=== PATIENT | female | born 1950 | race Caucasian/White ===

== ENCOUNTER 2019-08-04 11:19 | Emergency (ER) | payer MEDICARE ==
--- NOTE | 2019-08-04 11:24 | ERPHSYRPT ---
- History of Present Illness Time Seen by Provider: 08/04/19 11:23 Source: patient, EMS Exam Limitations: no limitations Physician History: This is a 68-year-old white female who has a history of Lambert-Eaton syndrome and was discharged from [facility] from which she was recovering from pneumonia and presents today with supraventricular tachycardia with a heart rate in the 230 range in route to this hospital emergency department. Patient was given adenosine 6 mg intravenously which converted her SVT to sinus tachycardia in the 120s. Patient's blood pressure was in the 90s at the heart rate of 230. She arrived with a systolic blood pressure 102. Patient states that she has had shortness of breath and is been weak since her discharge from the hospital approximately 2 weeks ago. However, this morning her symptoms were worse and she had associated fluttering of her heart. Was discharged to home with nebulizer treatments, prednisone and Levaquin antibiotic. Patient has minimal abdominal pain and minimal chest pain. Patient's medication specialist is Dr. Sierra Timing/Duration: week(s) (2 weeks), worse (Is worse in the last 2 days.) Activities at Onset: activity Chest Pain Radiation: no radiation Severity of Pain-Max: mild Severity of Pain-Current: mild Modifying Factors: Improves With: coughing, exertion Nitro Today/Relief: no nitro taken today Aspirin Treatment Today: no aspirin today Associated Symptoms: shortness of breath, cough, weakness, other (Racing heart) Prior Chest Pain/Cardiac Workup: no prior chest pain Allergies/Adverse Reactions: No Known Drug Allergies Allergy (Verified 08/04/19 11:45) Home Medications: Furosemide 20 mg [Lasix 20 mg] 20 mg PO DAILY 08/04/19 [History] Guaifenesin 600 mg ER [Mucinex 600MG ER Tabs] 600 mg PO BID 08/04/19 [ History] Ipratropium/Albuterol Sulfate [Iprat-Albut 0.5-3(2.5) mg/3 ml] 3 ml IH UD PRN [History] Levothyroxine Sodium 100 Mcg [Synthroid 100 Mcg] 100 mcg PO DAILY 08/04/19 [History] Lisinopril 10 mg [Zestril 10 MG] 10 mg PO DAILY 08/04/19 [History] PANTOPRAZOLE 40 mg Tablet [Protonix 40MG Tablet] 40 mg PO QAM 08/04/19 [ History] Potassium Chloride 10 Meq Tab* [Klor Con 10 MEQ] 10 meq PO BID 08/04/19 [ History] Prednisone 10 mg [Deltasone 10 mg] 10 mg PO DAILY 08/04/19 [History] Simvastatin 80 mg PO HS 08/04/19 [History] Sitagliptin Phos/Metformin HCl [Janumet 50-1,000 mg Tablet] 2 each PO HS [History] Topiramate 100 mg PO BID 08/04/19 [History] - Review of Systems Constitutional: Weakness Eyes: No Symptoms Ears, Nose, & Throat: No Symptoms Respiratory: Cough, Dyspnea Cardiac: Palpitations Abdominal/Gastrointestinal: No Symptoms Genitourinary Symptoms: No Symptoms Musculoskeletal: No Symptoms Skin: No Symptoms Neurological: No Symptoms Psychological: No Symptoms Endocrine: No Symptoms Hematologic/Lymphatic: No Symptoms Immunological/Allergic: No Symptoms All Other Systems: Reviewed and Negative - Past Medical History Pertinent Past Medical History: Yes Neurological History: No Pertinent History ENT History: No Pertinent History Cardiac History: No Pertinent History Respiratory History: Pneumonia Endocrine Medical History: No Pertinent History Musculoskeletal History: No Pertinent History GI Medical History: No Pertinent History History: No Pertinent History Psycho-Social History: No Pertinent History Female Reproductive Disorders: No Pertinent History - Past Surgical History Past Surgical History: Yes Neuro Surgical History: No Pertinent History Cardiac: No Pertinent History Respiratory: No Pertinent History Gastrointestinal: No Pertinent History Genitourinary: No Pertinent History Musculoskeletal: No Pertinent History Female Surgical History: No Pertinent History - Social History Smoking Status: Never smoker Significant Family History: no pertinent family hx - Nursing Vital Signs Nursing Vital Signs: Initial Vital Signs Temperature 99.5 F 08/04/19 11:21 Pulse Rate 136 H 08/04/19 11:21 Respiratory Rate 32 H 08/04/19 11:21 Blood Pressure 102/55 08/04/19 11:21 O2 Sat by Pulse Oximetry 100 08/04/19 11:21 Pain Scale Pain Intensity 0 - Physical Exam General Appearance: moderate distress, alert, anxiety Eye Exam: PERRL/EOMI, eyes nml inspection Ears, Nose, Throat Exam: dry mucous membranes Neck Exam: normal inspection, non-tender, supple, full range of motion Respiratory Exam: chest tenderness (Mild), respiratory distress (Mild mild), airway intact, accessory muscle use Cardiovascular Exam: tachycardia Gastrointestinal/Abdomen Exam: soft, normal bowel sounds, No tenderness Pelvic Exam: not done Rectal Exam: not done Back Exam: normal inspection, normal range of motion, No CVA tenderness, No vertebral tenderness Extremity Exam: normal inspection, normal range of motion, pelvis stable Neurologic Exam: alert, oriented x 3, cooperative, bench mechanic II-XII nml as tested Skin Exam: normal color, warm, dry Lymphatic Exam: No adenopathy SpO2 Interpretation: normal O2 Delivery: Room Air - Course Nursing assessment & vital signs reviewed: Yes EKG Interpreted by Me: RATE (125), Sinus Tach, NORMAL AXIS, NORMAL INTERVALS, NORMAL QRS, Other (No comparison EKG) Ordered Tests: Active Orders 24 hr Category Date Time Status Crimp Setter STAT Care 08/04/19 11:34 Active EKG-ER Only STAT Care 08/04/19 11:32 Active IV Insertion STAT Care 08/04/19 11:32 Active Pulse Oximetry (ED) STAT Care 08/04/19 11:32 Active CHEST 1 VIEW (PORTABLE) Stat Exams 08/04/19 11:34 Completed CHEST WITH CONTRAST [CT] Stat Exams 08/04/19 16:17 Completed BMP Stat Lab 08/04/19 15:00 Completed CBC W DIFF Stat Lab 08/04/19 11:44 Completed CMP Stat Lab 08/04/19 11:44 Completed CULTURE,URINE Stat Lab 08/04/19 15:45 Received D-DIMER QUANTITATIVE Stat Lab 08/04/19 11:44 Completed Lactic Acid Stat Lab 08/04/19 11:47 Completed Lactic Acid Stat Lab 08/04/19 13:52 Completed Manual Differential NC Stat Lab 08/04/19 11:44 Completed NT PRO BNP Stat Lab 08/04/19 11:44 Completed T4 (Thyroxine) Stat Lab 08/04/19 11:44 Completed TROPONIN Q3H Lab 08/04/19 11:44 Completed TROPONIN Q3H Lab 08/04/19 14:30 Completed TROPONIN Q3H Lab 08/04/19 17:25 Completed TROPONIN Q3H Lab 08/04/19 20:45 Ordered TROPONIN Q3H Lab 08/04/19 23:45 Ordered TSH, 3RD Generation Stat Lab 08/04/19 11:44 Completed UA W/RFX UR CULTURE Stat Lab 08/04/19 15:45 Completed Medication Summary Generic Name Dose Route Start Last Admin Trade Name Freq PRN Reason Stop Dose Admin Sodium Chloride 1,000 mls @ 250 mls/hr 08/04/19 16:15 08/04/19 16:10 Sodium Chloride 0.9% 1000 Ml IV 09/03/19 16:14 250 mls/hr .Q4H GERTRUDE Administration Norepinephrine 4,000 mcg/ 504 mls @ 37.8 mls/hr 08/04/19 16:27 08/04/19 18:03 Dextrose IV 09/03/19 16:26 4 mcg/min .[id number] PRN 30.24 mls/hr SEVERE HYPOTENSION Titration Protocol 5 MCG/MIN Discontinued Medications Generic Name Dose Route Start Last Admin Trade Name Freq PRN Reason Stop Dose Admin Hydrocodone Bitart/Acetaminophen 10 ml 08/04/19 13:37 08/04/19 14:12 Hydrocodone-Acetamin 2.5-108/5 Ml Solution PO 08/04/19 13:38 10 ml STAT STA Administration Hydrocodone Bitart/Acetaminophen Confirm 08/04/19 14:02 Hydrocodone-Acetamin 2.5-108/5 Ml Solution Administered 08/04/19 14:03 Dose 10 ml .ROUTE .STK-MED ONE Hydrocodone Bitart/Acetaminophen 10 ml 08/04/19 17:55 08/04/19 18:10 Hydrocodone-Acetamin 2.5-108/5 Ml Solution PO 08/04/19 17:56 10 ml STAT STA Administration Hydrocodone Bitart/Acetaminophen Confirm 08/04/19 18:09 Hydrocodone-Acetamin 2.5-108/5 Ml Solution Administered 08/04/19 18:10 Dose 10 ml .ROUTE .STK-MED ONE Sodium Chloride 1,000 mls @ 999 mls/hr 08/04/19 13:18 08/04/19 14:42 Sodium Chloride 0.9% 1000 Ml IV 08/04/19 14:18 Infused .Q1H1M STA Infusion Meropenem 1 g/ Sodium Chloride 100 mls @ 200 mls/hr 08/04/19 13:38 08/04/19 14:10 IV 08/04/19 14:07 200 mls/hr STAT ONE Administration Sodium Chloride Confirm 08/04/19 13:37 Sodium Chloride 0.9% 1000 Ml Administered 08/04/19 13:38 Dose 1,000 mls @ ud .ROUTE .STK-MED ONE Sodium Chloride Confirm 08/04/19 14:02 Sodium Chloride 0.9% 100 Ml Ivpb Administered 08/04/19 14:03 Dose 100 mls @ ud IV .STK-MED ONE Sodium Chloride Confirm 08/04/19 16:06 Sodium Chloride 0.9% 1000 Ml Administered 08/04/19 16:07 Dose 1,000 mls @ ud .ROUTE .STK-MED ONE Meropenem Confirm 08/04/19 14:02 Merrem 1 Gm Administered 08/04/19 14:03 Dose 1 g IV .STK-MED ONE Metoprolol Tartrate 2.5 mg 08/04/19 13:37 08/04/19 15:15 Lopressor 5 Mg/5 Ml Injection IV 08/04/19 13:38 Not Given STAT ONE Metoprolol Tartrate Confirm 08/04/19 14:01 Lopressor 5 Mg/5 Ml Injection Administered 08/04/19 14:02 Dose 5 mg IV .STK-MED ONE Lab/Rad Data: Laboratory Result Diagrams 08/04/19 11:44 08/04/19 15:00 Laboratory Results 08/04/19 08/04/19 08/04/19 Range/Units 17:25 15:45 15:00 WBC (4.0-10.5) K/mm3 RBC (4.1-5.4) M/mm3 Hgb (12.0-16.0) gm/dl Hct (35-47) % MCV (78-100) fl MCH (26-32) pg MCHC (32-36) g/dl RDW (11.5-14.0) % Plt Count (150-450) K/mm3 MPV (7.5-11.0) fl Absolute Granulocytes (1.4-6.9) Segmented Neutrophils (36.0-66.0) % Band Neutrophils (0.0-2.0) % Lymphocytes (Manual) (24-44) % Monocytes (Manual) (0.0-12.0) % Eosinophils (Manual) (0.00-3.0) % Metamyelocytes % Toxic Granulation Platelet Estimate (NORMAL) RBC Morphology D-Dimer (215-500) ng/mL Sodium 132 L (137-145) mmol/L Potassium 3.5 (3.5-5.1) mmol/L Chloride 105 (98-107) mmol/L Carbon Dioxide 20 L (22-30) mmol/L Anion Gap 10.8 (5-15) MEQ/L BUN 14 (7-17) mg/dL Creatinine 1.01 (0.52-1.04) mg/dL Estimated GFR 58.3 ML/MIN Glucose 98 (74-106) mg/dL Lactic Acid (0.4-2.0) Calcium 7.2 L D (8.4-10.2) mg/dL Total Bilirubin (0.2-1.3) mg/dL AST (14-36) U/L ALT (0-35) U/L Alkaline Phosphatase (38-126) U/L Troponin I 0.037 H* (0.000-0.034) ng/mL NT-Pro-B Natriuret Pep (0-900) pg/mL Serum Total Protein (6.3-8.2) g/dL Albumin (3.5-5.0) g/dL Thyroxine (T4) (5.53-10.96) ug/dL TSH 3rd Generation (0.47-4.68) mIU/L Urine Color YELLOW (YELLOW) Urine Appearance SLIGHTLY CLOUDY (CLEAR) Urine pH 6.0 (5-6) Ur Specific [place] 1.012 (1.005-1.025) Urine Protein 30 (Negative) Urine Ketones TRACE (NEGATIVE) Urine Blood MODERATE (0-5) Hilario/ul Urine Nitrite NEGATIVE (NEGATIVE) Urine Bilirubin NEGATIVE (NEGATIVE) Urine Urobilinogen NEGATIVE (0-1) mg/dL Ur Leukocyte Esterase TRACE (NEGATIVE) Urine WBC (Auto) 11-15 (0-5) /HPF Urine RBC (Auto) 3-5 (0-2) /HPF U Epithel Cells (Auto) RARE (FEW) /HPF Urine Bacteria (Auto) FEW (NEGATIVE) /HPF Calcium Oxalate Crystal 3-5 (NEGATIVE) /HPF Amorphous Crystals FEW (NEGATIVE) /HPF Granular Casts (Auto) 10-25 (NEGATIVE) /LPF Urine Culture Reflexed YES (NO) Urine Glucose 50 (NEGATIVE) mg/dL Influenza Type A Ag (NEGATIVE) Influenza Type B Ag (NEGATIVE) RSV (PCR) (Negative) 08/04/19 08/04/19 08/04/19 Range/Units 14:30 13:52 12:35 WBC (4.0-10.5) K/mm3 RBC (4.1-5.4) M/mm3 Hgb (12.0-16.0) gm/dl Hct (35-47) % MCV (78-100) fl MCH (26-32) pg MCHC (32-36) g/dl RDW (11.5-14.0) % Plt Count (150-450) K/mm3 MPV (7.5-11.0) fl Absolute Granulocytes (1.4-6.9) Segmented Neutrophils (36.0-66.0) % Band Neutrophils (0.0-2.0) % Lymphocytes (Manual) (24-44) % Monocytes (Manual) (0.0-12.0) % Eosinophils (Manual) (0.00-3.0) % Metamyelocytes % Toxic Granulation Platelet Estimate (NORMAL) RBC Morphology D-Dimer (215-500) ng/mL Sodium (137-145) mmol/L Potassium (3.5-5.1) mmol/L Chloride (98-107) mmol/L Carbon Dioxide (22-30) mmol/L Anion Gap (5-15) MEQ/L BUN (7-17) mg/dL Creatinine (0.52-1.04) mg/dL Estimated GFR ML/MIN Glucose (74-106) mg/dL Lactic Acid 0.9 (0.4-2.0) Calcium (8.4-10.2) mg/dL Total Bilirubin (0.2-1.3) mg/dL AST (14-36) U/L ALT (0-35) U/L Alkaline Phosphatase (38-126) U/L Troponin I 0.027 (0.000-0.034) ng/mL NT-Pro-B Natriuret Pep (0-900) pg/mL Serum Total Protein (6.3-8.2) g/dL Albumin (3.5-5.0) g/dL Thyroxine (T4) (5.53-10.96) ug/dL TSH 3rd Generation (0.47-4.68) mIU/L Urine Color (YELLOW) Urine Appearance (CLEAR) Urine pH (5-6) Ur Specific [place] (1.005-1.025) Urine Protein (Negative) Urine Ketones (NEGATIVE) Urine Blood (0-5) Hilario/ul Urine Nitrite (NEGATIVE) Urine Bilirubin (NEGATIVE) Urine Urobilinogen (0-1) mg/dL Ur Leukocyte Esterase (NEGATIVE) Urine WBC (Auto) (0-5) /HPF Urine RBC (Auto) (0-2) /HPF U Epithel Cells (Auto) (FEW) /HPF Urine Bacteria (Auto) (NEGATIVE) /HPF Calcium Oxalate Crystal (NEGATIVE) /HPF Amorphous Crystals (NEGATIVE) /HPF Granular Casts (Auto) (NEGATIVE) /LPF Urine Culture Reflexed (NO) Urine Glucose (NEGATIVE) mg/dL Influenza Type A Ag NEGATIVE (NEGATIVE) Influenza Type B Ag NEGATIVE (NEGATIVE) RSV (PCR) NEGATIVE (Negative) 08/04/19 08/04/19 08/04/19 Range/Units 11:47 11:44 11:44 WBC (4.0-10.5) K/mm3 RBC (4.1-5.4) M/mm3 Hgb (12.0-16.0) gm/dl Hct (35-47) % MCV (78-100) fl MCH (26-32) pg MCHC (32-36) g/dl RDW (11.5-14.0) % Plt Count (150-450) K/mm3 MPV (7.5-11.0) fl Absolute Granulocytes (1.4-6.9) Segmented Neutrophils (36.0-66.0) % Band Neutrophils (0.0-2.0) % Lymphocytes (Manual) (24-44) % Monocytes (Manual) (0.0-12.0) % Eosinophils (Manual) (0.00-3.0) % Metamyelocytes % Toxic Granulation Platelet Estimate (NORMAL) RBC Morphology D-Dimer 905 H* (215-500) ng/mL Sodium (137-145) mmol/L Potassium (3.5-5.1) mmol/L Chloride (98-107) mmol/L Carbon Dioxide (22-30) mmol/L Anion Gap (5-15) MEQ/L BUN (7-17) mg/dL Creatinine (0.52-1.04) mg/dL Estimated GFR ML/MIN Glucose (74-106) mg/dL Lactic Acid 2.3 H (0.4-2.0) Calcium (8.4-10.2) mg/dL Total Bilirubin (0.2-1.3) mg/dL AST (14-36) U/L ALT (0-35) U/L Alkaline Phosphatase (38-126) U/L Troponin I < 0.012 (0.000-0.034) ng/mL NT-Pro-B Natriuret Pep (0-900) pg/mL Serum Total Protein (6.3-8.2) g/dL Albumin (3.5-5.0) g/dL Thyroxine (T4) (5.53-10.96) ug/dL TSH 3rd Generation (0.47-4.68) mIU/L Urine Color (YELLOW) Urine Appearance (CLEAR) Urine pH (5-6) Ur Specific [place] (1.005-1.025) Urine Protein (Negative) Urine Ketones (NEGATIVE) Urine Blood (0-5) Hilario/ul Urine Nitrite (NEGATIVE) Urine Bilirubin (NEGATIVE) Urine Urobilinogen (0-1) mg/dL Ur Leukocyte Esterase (NEGATIVE) Urine WBC (Auto) (0-5) /HPF Urine RBC (Auto) (0-2) /HPF U Epithel Cells (Auto) (FEW) /HPF Urine Bacteria (Auto) (NEGATIVE) /HPF Calcium Oxalate Crystal (NEGATIVE) /HPF Amorphous Crystals (NEGATIVE) /HPF Granular Casts (Auto) (NEGATIVE) /LPF Urine Culture Reflexed (NO) Urine Glucose (NEGATIVE) mg/dL Influenza Type A Ag (NEGATIVE) Influenza Type B Ag (NEGATIVE) RSV (PCR) (Negative) 08/04/19 08/04/19 Range/Units 11:44 11:44 WBC 14.8 H (4.0-10.5) K/mm3 RBC 4.23 (4.1-5.4) M/mm3 Hgb 12.9 (12.0-16.0) gm/dl Hct 38.7 (35-47) % MCV 91.5 (78-100) fl MCH 30.5 (26-32) pg MCHC 33.3 (32-36) g/dl RDW 14.0 (11.5-14.0) % Plt Count 332 (150-450) K/mm3 MPV 8.7 (7.5-11.0) fl Absolute Granulocytes 12.83 H (1.4-6.9) Segmented Neutrophils 70 H (36.0-66.0) % Band Neutrophils 17 H (0.0-2.0) % Lymphocytes (Manual) 5 L (24-44) % Monocytes (Manual) 5 (0.0-12.0) % Eosinophils (Manual) 1 (0.00-3.0) % Metamyelocytes 2 % Toxic Granulation RARE Platelet Estimate NORMAL (NORMAL) RBC Morphology ABNORMAL D-Dimer (215-500) ng/mL Sodium 134 L (137-145) mmol/L Potassium 3.7 (3.5-5.1) mmol/L Chloride 98 (98-107) mmol/L Carbon Dioxide 22 (22-30) mmol/L Anion Gap 17.4 H (5-15) MEQ/L BUN 17 (7-17) mg/dL Creatinine 1.31 H (0.52-1.04) mg/dL Estimated GFR 43.2 ML/MIN Glucose 111 H (74-106) mg/dL Lactic Acid (0.4-2.0) Calcium 8.9 (8.4-10.2) mg/dL Total Bilirubin 0.60 (0.2-1.3) mg/dL AST 50 H (14-36) U/L ALT 14 (0-35) U/L Alkaline Phosphatase 78 (38-126) U/L Troponin I (0.000-0.034) ng/mL NT-Pro-B Natriuret Pep 383 (0-900) pg/mL Serum Total Protein 6.9 (6.3-8.2) g/dL Albumin 3.9 (3.5-5.0) g/dL Thyroxine (T4) 12.5 H (5.53-10.96) ug/dL TSH 3rd Generation 0.537 (0.47-4.68) mIU/L Urine Color (YELLOW) Urine Appearance (CLEAR) Urine pH (5-6) Ur Specific [place] (1.005-1.025) Urine Protein (Negative) Urine Ketones (NEGATIVE) Urine Blood (0-5) Hilario/ul Urine Nitrite (NEGATIVE) Urine Bilirubin (NEGATIVE) Urine Urobilinogen (0-1) mg/dL Ur Leukocyte Esterase (NEGATIVE) Urine WBC (Auto) (0-5) /HPF Urine RBC (Auto) (0-2) /HPF U Epithel Cells (Auto) (FEW) /HPF Urine Bacteria (Auto) (NEGATIVE) /HPF Calcium Oxalate Crystal (NEGATIVE) /HPF Amorphous Crystals (NEGATIVE) /HPF Granular Casts (Auto) (NEGATIVE) /LPF Urine Culture Reflexed (NO) Urine Glucose (NEGATIVE) mg/dL Influenza Type A Ag (NEGATIVE) Influenza Type B Ag (NEGATIVE) RSV (PCR) (Negative) - Progress Progress: improved Air Movement: fair Progress Note: 08/04/19 17:59 Chest x-ray reveals no acute findings. CAT scan of the chest with IV contrast is negative for pulmonary emboli. There is new diffuse bilateral "tree in bud- like" opacities favoring pneumonitis. There is right middle lobe sub-segmental atelectasis 08/04/19 18:[address] Obando who is covering for Dr. Moeller. I reviewed the patient history, condition, laboratory data, x-ray findings and EKG results. He accepts the patient for admission and transfer. Blood Culture(s) Obtained: Yes Antibiotics given: Yes Counseled pt/family regarding: lab results, diagnosis, need for follow-up, rad results - Departure Departure Disposition: Transfer Clinical Impression: Hypotension, Tachycardia, Pneumonitis, Sepsis, Elevated troponin Condition: Fair Critical Care Time: Yes Critical Care Time(excluding separately billable procedures): Critical 75-104 mins Referrals: ARTUR MOELLER MD [Primary Care Provider] -
[2019-08-04 11:44] LABS: Hematocrit 38.7 % (35-47); Hemoglobin 12.9 gm/dl (12.0-16.0); Mean Cell Volume 91.5 fl (78-100); Mean Corpuscular Hemoglobin 30.5 pg (26-32); Mean Corpuscular Hgb Concent. 33.3 g/dl (32-36); Mean Platelet Volume 8.7 fl (7.5-11.0); Platelet Count 332 K/mm3 (150-450); Red Blood Count 4.23 M/mm3 (4.1-5.4); White Blood Count 14.8 K/mm3 (4.0-10.5)
[2019-08-04 12:02] LABS: BAND 17 % (0.0-2.0); Eosinophil 1 % (0.00-3.0); Lymphocytes 5 % (24-44); Metamyelocyte 2 %; Monocyte 5 % (0.0-12.0); Neutrophils 70 % (36.0-66.0); Total Cells Counted 100
[2019-08-04 12:03] LABS: Platelet Estimate NORMAL (NORMAL)
[2019-08-04 12:04] LABS: Toxic Granulation RARE
--- NOTE | 2019-08-04 12:04 | XRAY ---
Indication: Short of breath. Tachycardia. Comparison: None Portable chest hyperinflated and clear with incidental left base calcified granuloma. Heart is not enlarged with left Port-A-Cath. Bony thorax intact with mild osteopenia and degenerative changes. Impression: Nonacute hyperinflated chest with chronic features.
[2019-08-04 12:05] LABS: Absolute Neutrophil Ct (ANC) 12.83 (1.4-6.9)
[2019-08-04 12:24] LABS: ALBUMIN 3.9 g/dL (3.5-5.0); ANION GAP 17.4 MEQ/L (5-15); BILIRUBIN,TOTAL 0.6 mg/dL (0.2-1.3); Calcium 8.9 mg/dL (8.4-10.2); Creatinine 1 1.31 mg/dL (0.52-1.04); Potassium 3.7 mmol/L (3.5-5.1); T4 (Thyroxine) 12.5 ug/dL (5.53-10.96); TSH, 3RD Generation 0.537 mIU/L (0.47-4.68); Total Protein 6.9 g/dL (6.3-8.2)
[2019-08-04 13:11] LABS: INFLUENZA A NEGATIVE (NEGATIVE); INFLUENZA B NEGATIVE (NEGATIVE); RESPIRATORY SYNCTIAL VIRUS NEGATIVE (Negative)
[2019-08-04] MEDS ORDERED: Sodium Chloride 0.9% 1000 ML 1,000 ML IV STA (13:18)
[2019-08-04] MEDS ORDERED: Sodium Chloride 0.9% 1000 ML 1,000 ML ONE ×2 (13:37→16:06)
[2019-08-04] MEDS ORDERED: LOPRESSOR 5 MG/5 ML INJECTION IV ONE ×2 (13:37→14:01)
[2019-08-04] MEDS ORDERED: HYDROCODONE-ACETAMIN 2.5-108/5 ML SOLUTION PO STA ×2 (13:37→17:55)
[2019-08-04] MEDS ORDERED: Merrem 1 GM 1 G in Sodium Chloride 100ML MINI-BAG PLUS 100 ML IV ONE (13:38)
[2019-08-04] MEDS ORDERED: Sodium Chloride 0.9% 100 ML IVPB 100 ML IV ONE (14:02)
[2019-08-04] MEDS ORDERED: HYDROCODONE-ACETAMIN 2.5-108/5 ML SOLUTION ONE ×2 (14:02→18:09)
[2019-08-04] MEDS ORDERED: Merrem 1 GM IV ONE (14:02)
[2019-08-04 16:00] LABS: ANION GAP 10.8 MEQ/L (5-15); Calcium 7.2 mg/dL (8.4-10.2); Creatinine 1 1.01 mg/dL (0.52-1.04); Potassium 3.5 mmol/L (3.5-5.1)
[2019-08-04 16:01] LABS: Amourphous Crystal FEW /HPF (NEGATIVE); Appearance SLIGHTLY CLOUDY (CLEAR); Bacteria FEW /HPF (NEGATIVE); Bilirubin NEGATIVE (NEGATIVE); Blood MODERATE Ery/ul (0-5); Epithelial Cells RARE /HPF (FEW); Glucose 50 mg/dL (NEGATIVE); Ketones TRACE (NEGATIVE); Leukocyte Esterase TRACE (NEGATIVE); Nitrite NEGATIVE (NEGATIVE); Protein,Urine Dip 30 (Negative); Specific Gravity 1.012 (1.005-1.025); Urobilinogen NEGATIVE mg/dL (0-1)
[2019-08-04] MEDS ORDERED: Sodium Chloride 0.9% 1000 ML 1,000 ML IV SCH (16:15)
[2019-08-04] MEDS ORDERED: LEVOPHED 4 MG/4 ML 4,000 MCG in Dextrose 5%/Water IV Soln. 500 ML 500 ML IV PRN (16:27)
--- NOTE | 2019-08-04 17:12 | XRAY ---
Indication: Short of breath, tachycardia, and elevated d-dimer. Multiple contiguous axial images obtained through the chest using 80 cc Isovue-370 contrast and PE protocol. Comparison: CT chest without May 08, 2011. There is good opacification of the pulmonary arteries to include the lobar and segmental branches. No filling defect or pulmonary embolus. Heart is not enlarged. Aorta is normal in course and caliber. New left sided Port-A-Cath. Stable small mediastinal lymph nodes. No pathologic mediastinal/hilar lymphadenopathy. Stable small hiatal hernia. Examination of the lung parenchyma demonstrates new diffuse bilateral tree-in-bud opacities greatest left lower lobe favoring pneumonitis. Medial right middle lobe demonstrates new focus of subsegmental atelectasis. No effusion. Incidental mild bibasilar dependent atelectasis and stable lingula calcified granuloma. Bony thorax intact. Limited upper abdomen demonstrates stable mild fatty liver and calcified splenic granuloma. Impression: 1. Negative pulmonary embolus. 2. New diffuse bilateral [id number] opacities favoring pneumonitis. 3. Incidental right middle lobe subsegmental atelectasis, small hiatal hernia, left Port-A-Cath, fatty liver, and evidence for old granulomatous disease.
[2019-08-04 20:40] VITALS: BP 104/55; PULSE 66; O2SAT 98
== END 2019-08-04 20:38 | disposition short-term general hospital (02) ==
LOC: ED 11:19
DX: I95.9 Hypotension, unspecified (principal); R00.0 Tachycardia, unspecified; J18.9 Pneumonia, unspecified organism; A41.9 Sepsis, unspecified organism; R74.8 Abnormal levels of other serum enzymes; Z79.899 Other long term (current) drug therapy
CPT/HCPCS: 36415; 71045; 71260; 80048; 80053; 81001; 83605; 83880; 84436; 84443; 84484; 85025; 85379; 87086; 87631; 93005; 93041; 94760; 96360; 96361; 96365; 96367; 99285; 99291; 99292; A9270-GY

== ENCOUNTER 2022-04-15 14:45 | Emergency (ER) | payer MEDICARE ==
[2022-04-15] MEDS ORDERED: Zofran 4 MG/2 ML VIAL IV ONE (15:02)
[2022-04-15] MEDS ORDERED: MORPHINE SULFATE 4 MG INJ IV ONE (15:02)
[2022-04-15] MEDS ORDERED: MORPHINE SULFATE 4 MG INJ ONE (15:08)
[2022-04-15] MEDS ORDERED: Zofran 4 MG/2 ML VIAL ONE (15:08)
[2022-04-15 15:09] LABS: Absolute Neutrophil Ct (ANC) 6.34 x10^3/uL (1.4-6.9); Basophil (Absolute #) 0.01 x10^3/uL (0-0.4); Eosinophil % 0.1 % (0.00-5.0); Eosinophil (Absolute #) 0.01 x10^3/uL (0-0.5); Hematocrit 36.7 % (35-47); Hemoglobin 11.3 g/dL (12.0-16.0); Lymphocyte (Absolute #) 0.68 x10^3/uL (1.0-4.6); Lymphocytes % 9.3 % (24.0-44.0); Mean Cell Volume 89.3 fL (78-100); Mean Corpuscular Hemoglobin 27.5 pg (26-32); Mean Corpuscular Hgb Concent. 30.8 g/dL (32-36); Mean Platelet Volume 9.4 fL (7.5-11.0); Monocyte (Absolute #) 0.17 x10^3/uL (0.0-1.3); Monocytes % 2.3 % (0.0-12.0); Neutrophil % 86.3 % (36.0-66.0); Platelet Count 180 x10^3/uL (150-450); Red Blood Count 4.11 x10^6/uL (4.1-5.4); Red Cell Distribution Width 14.4 % (11.5-14.0); White Blood Count 7.4 x10^3/uL (4.0-10.5)
[2022-04-15 15:48] LABS: ALBUMIN 3.2 g/dL (3.5-5.0); ALKALINE PHOSPHATASE 53 U/L (38-126); ANION GAP 10.6 MEQ/L (5-15); BLOOD UREA NITROGEN 21 mg/dL (7-17); CHLORIDE 96 mmol/L (98-107); CK-Creatinine Phosphokinase 22 U/L (30-135); Calcium 8.1 mg/dL (8.4-10.2); Carbon Dioxide 28 mmol/L (22-30); Creatinine 1 0.73 mg/dL (0.52-1.04); EST GLOMERULAR FILTRATION RATE > 60.0 ML/MIN; Glucose 133 mg/dL (74-106); NT PRO BNP 189 pg/mL (0-900); Potassium 3.9 mmol/L (3.5-5.1); SGOT/AST 18 U/L (14-36); SGPT/ALT 18 U/L (0-35); SODIUM 131 mmol/L (137-145); Total Protein 5.3 g/dL (6.3-8.2)
--- NOTE | 2022-04-15 16:08 | XRAY ---
Indication: Pain and discoloration. Two-dimensional sonogram and color Doppler imaging of the major arteries of the right leg performed. Comparison: None Widely patent common femoral, deep femoral, superficial femoral, and popliteal arteries. Mild arteriosclerotic disease of the remaining posterior tibial and dorsal pedal arteries. Arterial waveforms are multiphasic throughout the right leg. Right arm brachial pressure is 130. Right ankle pressure is 127. Ankle brachial index is 0.97, normal. 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 Negative for critical stenosis/obstruction. Normal GAIL 0.97.
--- NOTE | 2022-04-15 16:08 | XRAY ---
Indication: Pain and swelling. Two-dimensional sonogram and color Doppler imaging of the major venous vessels of the right leg performed. Comparison: None No thrombus seen in the examined deep venous vessels of the right leg including greater saphenous vein. Veins demonstrate normal compressibility. Venous waveforms are normal with and without augmentation. Impression: Right leg negative for DVT.
--- NOTE | 2022-04-15 16:48 | XRAY ---
Indication: Pain, bruising, and swelling. No known injury. Comparison: None 3 nonweightbearing views right foot demonstrates osteopenia, distal 4th metatarsal healed fibrous cortical defect, and small heel spurs. No other bony, articular, or soft tissue abnormalities.
--- NOTE | 2022-04-15 17:41 | ERPHSYRPT ---
- History of Present Illness Time Seen by Provider: 04/15/22 14:46 Source: patient Exam Limitations: no limitations Patient Subjective Stated Complaint: PT states "I was recently at the hospital and I am short of breath, but my feet and legs hurt really bad" Triage Nursing Assessment: Pt presented alert and oriented X 3, skin pwd. Pt ambulates with a slow gait, able to speak in clear full sentences. Pt right lateral foot swollen and purple. PT stated her feet will tingle. Physician History: 71-year-old female with history of COPD with chronic respiratory failure 3-4 L oxygen all the time, recent pneumonia currently on antibiotics presented in the ER with chief complaint of right foot swelling/pain and bluish discoloration which she noticed this morning. Patient reports right foot is cold in the left, applied [id number] topical analgesic with no significant relief. Patient reports initially when she woke up she was pretty swollen and gradually swelling is improving but still have bluish discoloration. No fall or trauma reported. Currently reports dull aching to sharp pain moderate intensity with palpation movements. Also reports having some pain in the right lower extremity. No history of DVT. Has shortness of breath at her baseline which is not any worse than usual. No chest pain. Timing/Duration: today, constant, sudden Severity: moderate Modifying Factors: Improves With: nothing Associated Symptoms: shortness of breath, cough, rash, No abdominal pain, No heartburn, No diaphoresis, No chest pain, No headaches, No loss of appetite, No malaise, No syncope, No seizure, No weakness Allergies/Adverse Reactions: No Known Drug Allergies Allergy (Verified 08/04/19 11:45) Home Medications: Furosemide 20 mg [Lasix 20 mg] 20 mg PO DAILY 08/04/19 [History] Guaifenesin 600 mg ER [Mucinex 600MG ER Tabs] 600 mg PO BID 08/04/19 [History] Ipratropium/Albuterol Sulfate [Iprat-Albut 0.5-3(2.5) mg/3 ml] 3 ml IH UD PRN 0 08/04/19 [History] Levothyroxine Sodium 100 Mcg [Synthroid 100 Mcg] 100 mcg PO DAILY 08/04/19 [History] Lisinopril 10 mg [Zestril 10 MG] 10 mg PO DAILY 08/04/19 [History] PANTOPRAZOLE 40 mg Tablet [Protonix 40MG Tablet] 40 mg PO QAM 08/04/19 [History] Potassium Chloride Tab* [Klor Con 10 MEQ] 10 meq PO BID 08/04/19 [History] Prednisone 10 mg [Deltasone 10 mg] 10 mg PO DAILY 08/04/19 [History] Simvastatin 80 mg PO HS 08/04/19 [History] Sitagliptin Phos/Metformin HCl [Janumet 50-1,000 mg Tablet] 2 each PO HS 08/04/19 [History] Topiramate 100 mg PO BID 08/04/19 [History] Hx Tetanus, Diphtheria Vaccination/Date Given: Yes Hx Influenza Vaccination/Date Given: No Hx Pneumococcal Vaccination/Date Given: No Immunizations Up to Date: Yes Travel Risk - International Travel Have you traveled outside of the country in past 3 weeks: No - Coronavirus Screening Are you exhibiting any of the following symptoms?: No Close contact with a COVID-19 positive Pt in past 14-21 Days: No - Vaccine Status Have you recieved a Covid-19 vaccination: Yes Academic Director: Unknown - Vaccination Dates Dates if Unknown: 2020 - Review of Systems Constitutional: No Symptoms Eyes: No Symptoms Ears, Nose, & Throat: No Symptoms Respiratory: Cough, Dyspnea, Dyspnea on Exertion (OCHOA), Wheezing Cardiac: No Symptoms Abdominal/Gastrointestinal: No Symptoms Genitourinary Symptoms: No Symptoms Musculoskeletal: Myalgias Skin: Rash Neurological: No Symptoms Psychological: No Symptoms Endocrine: No Symptoms Hematologic/Lymphatic: No Symptoms Immunological/Allergic: No Symptoms - Past Medical History Pertinent Past Medical History: Yes Neurological History: No Pertinent History ENT History: No Pertinent History Cardiac History: No Pertinent History Respiratory History: Pneumonia Endocrine Medical History: No Pertinent History Musculoskeletal History: No Pertinent History GI Medical History: No Pertinent History History: No Pertinent History Psycho-Social History: No Pertinent History Female Reproductive Disorders: No Pertinent History - Past Surgical History Past Surgical History: Yes Neuro Surgical History: No Pertinent History Cardiac: No Pertinent History Respiratory: No Pertinent History Gastrointestinal: No Pertinent History Genitourinary: No Pertinent History Musculoskeletal: No Pertinent History Female Surgical History: No Pertinent History - Social History Smoking Status: Former smoker Exposure to second hand smoke: Yes Drug Use: none Patient Lives Alone: No Significant Family History: no pertinent family hx - Nursing Vital Signs Nursing Vital Signs: Initial Vital Signs Temperature 98.5 F 04/15/22 14:46 Pulse Rate 104 H 04/15/22 14:46 Respiratory Rate 24 04/15/22 14:46 Blood Pressure 142/76 04/15/22 14:46 O2 Sat by Pulse Oximetry 98 04/15/22 14:46 Pain Scale Pain Intensity 0 - Physical Exam General Appearance: no apparent distress, alert Eye Exam: PERRL/EOMI Ears, Nose, Throat Exam: normal ENT inspection, pharynx normal Neck Exam: normal inspection, supple, full range of motion Respiratory Exam: normal breath sounds, lungs clear Cardiovascular Exam: regular rate/rhythm, normal heart sounds Gastrointestinal/Abdomen Exam: soft, normal bowel sounds, No tenderness Back Exam: normal inspection, normal range of motion Extremity Exam: normal range of motion, pelvis stable, other (Bluish discoloration right foot dorsum involving second and third proximal toes as well. Cap refill greater than 3 seconds. Mild cold as compared to left. Nontender.) Neurologic Exam: alert, oriented x 3, cooperative Skin Exam: cyanosis SpO2 Interpretation: O2 applied SpO2: 98 O2 Delivery: Nasal Cannula - Course EKG Interpreted by Me: RATE (100), Sinus Rhythm, NORMAL AXIS, NORMAL INTERVALS, Non-specific ST Changes, Other (APC's) Ordered Tests: Active Orders 24 hr Category Date Time Status EKG-ER Only STAT Care 04/15/22 15:02 Active ARTERIAL UNILAT/LTD LOWER EXT [US] Stat Exams 04/15/22 15:03 Completed FOOT (MINIMUM 3 VIEWS) Stat Exams 04/15/22 Completed VENOUS UNILAT/LIMITED EXTREMIT [US] Stat Exams 04/15/22 15:02 Completed CBC W DIFF Stat Lab 04/15/22 15:05 Completed CK-Creatinine Phosphokinase Stat Lab 04/15/22 15:05 Completed CMP Stat Lab 04/15/22 15:05 Completed NT PRO BNP Stat Lab 04/15/22 15:05 Completed Medication Summary Discontinued Medications Generic Name Dose Route Start Last Admin Trade Name Freq PRN Reason Stop Dose Admin Morphine Sulfate 4 mg 04/15/22 15:02 04/15/22 15:12 Morphine Sulfate 4 Mg/Ml Injection IV 04/15/22 15:03 4 mg STAT ONE Administration Morphine Sulfate Confirm 04/15/22 15:08 Morphine Sulfate 4 Mg/Ml Injection Administered 04/15/22 15:09 Dose 4 mg .ROUTE .STK-MED ONE Ondansetron HCl 4 mg 04/15/22 15:02 04/15/22 15:10 Ondansetron Hcl 4 Mg/2 Ml Vial IV 04/15/22 15:03 4 mg STAT ONE Administration Ondansetron HCl Confirm 04/15/22 15:08 Ondansetron Hcl 4 Mg/2 Ml Vial Administered 04/15/22 15:09 Dose 4 mg .ROUTE .STK-MED ONE Lab/Rad Data: Laboratory Result Diagrams 04/15/22 15:05 04/15/22 15:05 Laboratory Results 04/15/22 04/15/22 Range/Units 15:05 15:05 WBC 7.4 (4.0-10.5) x10^3/uL RBC 4.11 (4.1-5.4) x10^6/uL Hgb 11.3 L (12.0-16.0) g/dL Hct 36.7 (35-47) % MCV 89.3 (78-100) fL MCH 27.5 (26-32) pg MCHC 30.8 L (32-36) g/dL RDW 14.4 H (11.5-14.0) % Plt Count 180 (150-450) x10^3/uL MPV 9.4 (7.5-11.0) fL Gran % 86.3 H (36.0-66.0) % Immature Gran % (Auto) 1.9 H (0.00-0.4) % Nucleat RBC Rel Count 0.0 (0.00-0.1) % Eos # (Auto) 0.01 (0-0.5) x10^3/uL Immature Gran # (Auto) 0.14 H (0.00-0.03) x10^3u/L Absolute Lymphs (auto) 0.68 L (1.0-4.6) x10^3/uL Absolute Monos (auto) 0.17 (0.0-1.3) x10^3/uL Absolute Nucleated RBC 0.00 (0.00-0.01) x10^3u/L Lymphocytes % 9.3 L (24.0-44.0) % Monocytes % 2.3 (0.0-12.0) % Eosinophils % 0.1 (0.00-5.0) % Basophils % 0.1 (0.0-0.4) % Absolute Granulocytes 6.34 (1.4-6.9) x10^3/uL Basophils # 0.01 (0-0.4) x10^3/uL Sodium 131 L (137-145) mmol/L Potassium 3.9 (3.5-5.1) mmol/L Chloride 96 L (98-107) mmol/L Carbon Dioxide 28 (22-30) mmol/L Anion Gap 10.6 (5-15) MEQ/L BUN 21 H (7-17) mg/dL Creatinine 0.73 (0.52-1.04) mg/dL Estimated GFR > 60.0 ML/MIN Glucose 133 H (74-106) mg/dL Calcium 8.1 L (8.4-10.2) mg/dL Total Bilirubin 0.70 (0.2-1.3) mg/dL AST 18 (14-36) U/L ALT 18 (0-35) U/L Alkaline Phosphatase 53 (38-126) U/L Creatine Kinase 22 L (30-135) U/L NT-Pro-B Natriuret Pep 189 (0-900) pg/mL Serum Total Protein 5.3 L (6.3-8.2) g/dL Albumin 3.2 L (3.5-5.0) g/dL - Progress Progress: improved Progress Note: 04/15/22 17:39 Patient is in sinus rhythm. No history of PE/DVT ER atrial fibrillation. She has strong dorsalis pedis and posterior tibial palpable's. She is given symptomatic treatment for pain, on reevaluation feeling better. Later on after couple of hours stay in the hospital her temperature in the right foot is also improved. I have obtained arterial and venous Doppler which are negative for any acute occlusion. X-rays negative as well for acute fracture dislocation. I have discussed with Dr. Peterson vascular surgery at [facility], who do not think patient needs any further work-up and if she is in sinus rhythm no need for anticoagulation and she can follow-up outpatient. Patient does not have ischemic limb, I do not know the exact cause of her symptoms but have no acute emergency this point I do not think patient needs any further work-up and is stable for discharge with outpatient follow-up. 04/15/22 17:43 Discussed with : Other Counseled pt/family regarding: lab results, diagnosis, need for follow-up, rad results - Departure Departure Disposition: Home Clinical Impression: Foot pain, right Condition: Stable Critical Care Time: No Referrals: ARTUR MOELLER MD [Primary Care Provider] - Follow Up with PCP/3 days Instructions: Peripheral Vascular (Arterial) Disease (DC), Shortness of Breath (Dyspnea) (DC) Additional Instructions: Follow-up with primary care physician for reevaluation and may need to have referral for vascular surgery for further evaluation of bluish discoloration of foot. Take Tylenol as needed for pain. Return to ER if having again swelling, worsening of bluish discoloration, cold foot/limb etc. per
[2022-04-15 17:52] VITALS: O2SAT 100
[2022-04-15 18:46] VITALS: BP 129/67; PULSE 77
== END 2022-04-15 18:50 | disposition home or self-care (01) ==
LOC: ED 14:45
DX: M79.671 Pain in right foot (principal); M79.604 Pain in right leg; J44.9 Chronic obstructive pulmonary disease, unspecified; Z99.81 Dependence on supplemental oxygen; Z79.899 Other long term (current) drug therapy
CPT/HCPCS: 36415; 73630; 80053; 82550; 83880; 85025; 93005; 93926; 93971; 96374; 96375; 99284; J2270; J2405

== ENCOUNTER 2023-05-02 03:15 | Inpatient (IN) | payer MEDICARE ==
--- NOTE | 2023-05-02 03:21 | ERPHSYRPT ---
- History of Present Illness Source: patient, family, EMS Exam Limitations: no limitations Timing/Duration: today Activities at Onset: rest Severity of Dyspnea-Max: moderate Severity of Dyspnea-Current: moderate Possible Cause: frequent episodes, chronic episodes Modifying Factors: Improves With: albuterol nebulizer, coughing Associated Symptoms: chest pain/discomfort, wheezing Hx Tetanus, Diphtheria Vaccination/Date Given: Yes Hx Influenza Vaccination/Date Given: No Hx Pneumococcal Vaccination/Date Given: No <JUSTO ROBERTO - Last Filed: 05/02/23 06:59> <LELAND SERRANO - Last Filed: 05/02/23 07:42> - History of Present Illness Time Seen by Provider: 05/02/23 03:16 Physician History: 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 She responded quickly to breathing treatment on the way. SOme chest tightness with breathing - denies Hx CAD, Chest with wheezes bilaterally. Ht reg. Abd soft nontender without Mass. and EMS are in ER and serve as independent sources for pt Hx. Discussed with pt and , risk/benefit of Tx Duoneb, Solumedrol ( first given in EMS) IV, O2, testing of CBC, CMP, CXR, EKG, Trops, D Dimer, and they wish to proceed - these are ordered. results discussed., (JUSTO ROBERTO) Allergies/Adverse Reactions: No Known Drug Allergies Allergy (Verified 05/02/23 03:16) Home Medications: Ipratropium/Albuterol Sulfate [Iprat-Albut 0.5-3(2.5) mg/3 ml] 3 ml IH UD PRN 08/04/19 [History] Levothyroxine Sodium 100 Mcg [Synthroid 100 Mcg] 100 mcg PO DAILY 08/04/19 [History] Lisinopril 10 mg [Zestril 10 MG] 10 mg PO DAILY 08/04/19 [History] PANTOPRAZOLE 40 mg Tablet [Protonix 40MG Tablet] 40 mg PO QAM 08/04/19 [History] Simvastatin 80 mg PO HS 08/04/19 [History] Sitagliptin Phos/Metformin HCl [Janumet 50-1,000 mg Tablet] 2 each PO HS 08/04/19 [History] Gabapentin 100 mg PO HS 05/02/23 [History] Travel Risk - Vaccine Status Have you recieved a Covid-19 vaccination: Yes 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 - Vaccination Dates Dates if Unknown: 2020 <FELISAJUSTO CLARA - Filed: 05/02/23 06:59> - Review of Systems Constitutional: No Fever, No Chills Eyes: No Symptoms Ears, Nose, & Throat: No Symptoms Respiratory: Cough, Dyspnea, Wheezing Cardiac: Chest Pain, No Edema, No Syncope Abdominal/Gastrointestinal: No Abdominal Pain, No Nausea, No Vomiting, No Diarrhea Genitourinary Symptoms: No Dysuria Musculoskeletal: No Back Pain, No Neck Pain Skin: No Rash Neurological: No Dizziness, No Focal Weakness, No Sensory Changes Psychological: No Symptoms Endocrine: No Symptoms Hematologic/Lymphatic: No Symptoms Immunological/Allergic: No Symptoms All Other Systems: Reviewed and Negative <FELISAJUSTOKATARINA ELIZABETH - Filed: 05/02/23 06:59> - Past Medical History Pertinent Past Medical History: Yes Neurological History: No Pertinent History ENT History: No Pertinent History Cardiac History: No Pertinent History Respiratory History: Pneumonia Endocrine Medical History: No Pertinent History Musculoskeletal History: No Pertinent History GI Medical History: No Pertinent History History: No Pertinent History Psycho-Social History: No Pertinent History Female Reproductive Disorders: No Pertinent History - Past Surgical History Past Surgical History: Yes Neuro Surgical History: No Pertinent History Cardiac: No Pertinent History Respiratory: No Pertinent History Gastrointestinal: No Pertinent History Genitourinary: No Pertinent History Musculoskeletal: No Pertinent History Female Surgical History: No Pertinent History - Social History Smoking Status: Former smoker Exposure to second hand smoke: Yes Drug Use: none Patient Lives Alone: No Significant Family History: no pertinent family hx <FELISAJUSTOKATARINA ELIZABETH - Last Filed: 05/02/23 06:59> - Physical Exam General Appearance: no apparent distress, alert Eye Exam: PERRL/EOMI Neck Exam: normal inspection, supple Respiratory Exam: airway intact, rhonchi, wheezing Cardiovascular/Chest Exam: normal heart sounds, regular rate/rhythm Abdominal/Gastrointestinal Exam: soft, No tenderness, No distention, No mass Extremity Exam: non-tender, normal range of motion, normal inspection, no calf tenderness, no pedal edema Peripheral Pulses Exam: carotid (R): 2+, carotid (L): 2+, femoral (R): 2+, femoral (L): 2+, dorsalis-pedis (R): 2+, dorsalis-pedis (L): 2+ Neurologic Exam: alert, oriented x 3, cooperative, 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 school director II-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 nml as tested, sensation nml, No motor deficits Skin Exam: normal color, warm, No dry SpO2 Interpretation: borderline oxygenation SpO2: 98 O2 Delivery: Non-rebreather <JUSTO ROBERTO - Last Filed: 05/02/23 06:59> - Nursing Vital Signs Nursing Vital Signs: Initial Vital Signs Temperature 100.0 F 05/02/23 03:21 Pulse Rate 107 H 05/02/23 03:21 Respiratory Rate 29 H 05/02/23 03:21 Blood Pressure 148/51 05/02/23 03:21 O2 Sat by Pulse Oximetry 93 L 05/02/23 03:21 Pain Scale Pain Intensity 5 - Course Nursing assessment & vital signs reviewed: Yes EKG Interpreted by Me: Sinus Tach, NORMAL AXIS, NORMAL INTERVALS, NORMAL QRS, Non-specific ST Changes - Radiology Exams Chest X-ray Interpretation: Interpreted by me, Reviewed by me, Other (left nodule and interstitial infiltrates) <JUSTO ROBERTO - Last Filed: 05/02/23 06:59> Ordered Tests: Active Orders 24 hr Category Date Time Status Underwater Trapper STAT Care 05/02/23 03:27 Active EKG-ER Only STAT Care 05/02/23 03:26 Active Pulse Oximetry (ED) STAT Care 05/02/23 03:26 Active CHEST 1 VIEW (PORTABLE) Stat Exams 05/02/23 03:27 Taken CHEST WITH CONTRAST [CT] Stat Exams 05/02/23 05:22 Completed CBC W DIFF Stat Lab 05/02/23 03:55 Completed CMP Stat Lab 05/02/23 03:55 Completed D-DIMER QUANTITATIVE Stat Lab 05/02/23 03:55 Completed NT PRO BNPII Stat Lab 05/02/23 03:55 Completed PT INR [PROTIME WITH INR] Stat Lab 05/02/23 03:55 Received PTT Stat Lab 05/02/23 03:55 Received TROPONIN Q4H Lab 05/02/23 03:55 Completed TROPONIN Q4H Lab 05/02/23 06:40 Completed TROPONIN Q4H Lab 05/02/23 11:30 Ordered Medication Summary Generic Name Dose Route Start Last Admin Trade Name Moise PRN Reason Stop Dose Admin Sodium Chloride 1,000 mls @ 50 mls/hr 05/02/23 03:30 05/02/23 03:54 Sodium Chloride 0.9% 1000 Ml IV 06/01/23 03:29 50 mls/hr .Q20H GERTRUDE Administration Discontinued Medications Generic Name Dose Route Start Last Admin Trade Name Freq PRN Reason Stop Dose Admin Enoxaparin Sodium 70 mg 05/02/23 07:33 Enoxaparin Sodium 80 Mg/0.8 Ml Syringe 1 mg/kg (70 mg) 05/02/23 07:34 SQ ONCE STA Ceftriaxone Sodium/Dextrose 1 g in 50 mls @ 100 mls/hr 05/02/23 03:26 05/02/23 06:32 Rocephin 1 Gm-D5w 50 Ml Bag IV 05/02/23 03:55 Infused STAT STA Infusion Ceftriaxone Sodium/Dextrose Confirm 05/02/23 03:44 Rocephin 1 Gm-D5w 50 Ml Bag Administered 05/02/23 03:45 Dose 1 g in 50 mls @ ud IV .STK-MED ONE Piperacillin Sod/Tazobactam 100 mls @ 200 mls/hr 05/02/23 06:28 05/02/23 06 :38 Sod 3.375 gm/ Sodium Chloride IV 05/02/23 06:57 200 mls/hr STAT ONE Administration Sodium Chloride Confirm 05/02/23 06:34 Sodium Chloride 100ml Mini-Bag Plus Administered 05/02/23 06:35 Dose 100 mls @ ud IV .STK-MED ONE Piperacillin Sod/Tazobactam Sod Confirm 05/02/23 06:33 Piperacillin/Tazobactam Sodium 3.375 Gm Vial Administered 05/02/23 06:34 Dose 3.375 gm IV .STK-MED ONE Lab/Rad Data: Laboratory Result Diagrams 05/02/23 03:55 05/02/23 03:55 Laboratory Results 05/02/23 05/02/23 05/02/23 Range/Units 06:40 03:55 03:55 WBC (4.0-10.5) x10^3/uL RBC (4.1-5.4) x10^6/uL Hgb (12.0-16.0) g/dL Hct (35-47) % MCV (78-100) fL MCH (26-32) pg MCHC (32-36) g/dL RDW (11.5-14.0) % Plt Count (150-450) x10^3/uL MPV (7.5-11.0) fL Gran % (36.0-66.0) % Immature Gran % (Auto) (0.00-0.4) % Nucleat RBC Rel Count (0.00-0.1) % Eos # (Auto) (0-0.5) x10^3/uL Immature Gran # (Auto) (0.00-0.03) x10^3u/L Absolute Lymphs (auto) (1.0-4.6) x10^3/uL Absolute Monos (auto) (0.0-1.3) x10^3/uL Absolute Nucleated RBC (0.00-0.01) x10^3u/L Lymphocytes % (24.0-44.0) % Monocytes % (0.0-12.0) % Eosinophils % (0.00-5.0) % Basophils % (0.0-0.4) % Absolute Granulocytes (1.4-6.9) x10^3/uL Basophils # (0-0.4) x10^3/uL D-Dimer (0.0-0.50) mg/L Sodium (137-145) mmol/L Potassium (3.5-5.1) mmol/L Chloride (98-107) mmol/L Carbon Dioxide (22-30) mmol/L Anion Gap (5-15) MEQ/L BUN (7-17) mg/dL Creatinine (0.52-1.04) mg/dL Estimated GFR ML/MIN Glucose (74-106) mg/dL Calcium (8.4-10.2) mg/dL Total Bilirubin (0.2-1.3) mg/dL AST (14-36) U/L ALT (0-35) U/L Alkaline Phosphatase (38-126) U/L Troponin I < 0.012 < 0.012 (0.000-0.034) ng/mL NT-Pro-B Natriuret Pep 163 (<300) pg/mL Serum Total Protein (6.3-8.2) g/dL Albumin (3.5-5.0) g/dL Influenza Type A Ag NEGATIVE (NEGATIVE) Influenza Type B Ag NEGATIVE (NEGATIVE) RSV (PCR) NEGATIVE (NEGATIVE) SARS-CoV-2 (PCR) NEGATIVE (NEGATIVE) 05/02/23 05/02/23 05/02/23 Range/Units 03:55 03:55 03:55 WBC 17.5 H (4.0-10.5) x10^3/uL RBC 3.89 L (4.1-5.4) x10^6/uL Hgb 11.9 L (12.0-16.0) g/dL Hct 36.9 (35-47) % MCV 94.9 (78-100) fL MCH 30.6 (26-32) pg MCHC 32.2 (32-36) g/dL RDW 12.8 (11.5-14.0) % Plt Count 332 (150-450) x10^3/uL MPV 8.2 (7.5-11.0) fL Gran % 75.3 H (36.0-66.0) % Immature Gran % (Auto) 0.8 H (0.00-0.4) % Nucleat RBC Rel Count 0.0 (0.00-0.1) % Eos # (Auto) 0.02 (0-0.5) x10^3/uL Immature Gran # (Auto) 0.14 H (0.00-0.03) x10^3u/L Absolute Lymphs (auto) 3.35 (1.0-4.6) x10^3/uL Absolute Monos (auto) 0.76 (0.0-1.3) x10^3/uL Absolute Nucleated RBC 0.00 (0.00-0.01) x10^3u/L Lymphocytes % 19.2 L (24.0-44.0) % Monocytes % 4.4 (0.0-12.0) % Eosinophils % 0.1 (0.00-5.0) % Basophils % 0.2 (0.0-0.4) % Absolute Granulocytes 13.15 H (1.4-6.9) x10^3/uL Basophils # 0.03 (0-0.4) x10^3/uL D-Dimer 0.59 H (0.0-0.50) mg/L Sodium 133 L (137-145) mmol/L Potassium 3.6 (3.5-5.1) mmol/L Chloride 97 L (98-107) mmol/L Carbon Dioxide 27 (22-30) mmol/L Anion Gap 12.0 (5-15) MEQ/L BUN 15 (7-17) mg/dL Creatinine 0.58 (0.52-1.04) mg/dL Estimated GFR 97.3 ML/MIN Glucose 133 H (74-106) mg/dL Calcium 8.9 (8.4-10.2) mg/dL Total Bilirubin 0.40 (0.2-1.3) mg/dL AST 21 (14-36) U/L ALT 11 (0-35) U/L Alkaline Phosphatase 90 (38-126) U/L Troponin I (0.000-0.034) ng/mL NT-Pro-B Natriuret Pep (<300) pg/mL Serum Total Protein 5.9 L (6.3-8.2) g/dL Albumin 3.4 L (3.5-5.0) g/dL Influenza Type A Ag (NEGATIVE) Influenza Type B Ag (NEGATIVE) RSV (PCR) (NEGATIVE) SARS-CoV-2 (PCR) (NEGATIVE) - Progress Progress: improved, re-examined Air Movement: good Blood Culture(s) Obtained: No Antibiotics given: Yes Counseled pt/family regarding: lab results, diagnosis, need for follow-up, rad results <JUSTO ROBERTO - Last Filed: 05/02/23 06:59> - Progress Discussed with Dr.: Other () <LELAND SERRANO - Last Filed: 05/02/23 07:42> - Progress Progress Note: 05/02/23 06:59 pt is handed off to Dr. Serrano for completion of workup and final Tx/Disposition at change of shift after discussion of presentation and findings as well as pending labs and working DDX. (JUSTO ROBERTO) 05/02/23 07:39 Patient is checked out to me at shift change from Dr. Allen with pending CT chest for PE. Patient is currently on 4 L oxygen with saturation in mid 90s. She has bilateral rhonchi and few rales during exam. Patient walked to the bathroom while on 4 L oxygen and dropped to 88%. She has a white count of 17, negative troponins x 2 but CTA is positive for left-sided pulmonary embolism with interstitial findings suggestive of infectious process. Patient has already received a dose of Rocephin and Zosyn by Dr. Allen. I have discussed with patient about starting her on Lovenox, went over risk and benefits and she agreed for that. She has no absolute contraindication for it. She would be given 1 mg/kg Lovenox here in the ER. Discussed with hospitalist Dr. Hill, reviewed history, workup and agreed with admission. (LELAND SERRANO) Medical Desision Making - Independent Historian Additional History obtained from: Family, EMS - Discussion of managment Reviewed:: Test results, Need for additional workup Agreed on:: Treatment plan, need for follow-up - Diagnostic Testing Diagnostic test were ordered, analyzed, and reviewed by me: Yes Radiological Interpretation: Interpreted by me, Reviewed by me - Risk of complications The pt has a mod risk of morbidity or mortality based on: Need for prescription drug management The pt has a high risk of morbidity or mortality based on: Decision regarding hospitilization or escalation of hosp level of care <JUSTO ROBERTO - Last Filed: 05/02/23 06:59> - Discussion of managment Care discussed with:: hospitalist Will see patient: in hospital <LELAND SERRANO - Last Filed: 05/02/23 07:42> - Departure Critical Care Time: No <JUSTO ROBERTO - Last Filed: 05/02/23 06:59> - Departure Departure Disposition: In-patient Admission <LELAND SERRANO - Last Filed: 05/02/23 07:42> - Departure Clinical Impression: Pulmonary embolism, Pneumonia, Respiratory failure Condition: Good Referrals: ARTUR MOELLER MD [Primary Care Provider] - Follow up/PCP as directed
[2023-05-02] MEDS ORDERED: ROCEPHIN 1 Gm-D5w 50 ml Bag** 1 G/50 ML IVPB IV STA (03:26)
[2023-05-02] MEDS ORDERED: Sodium Chloride 0.9% 1000 ML 1,000 ML IV SCH (03:30)
[2023-05-02] MEDS ORDERED: ROCEPHIN 1 Gm-D5w 50 ml Bag** 1 G/50 ML IVPB IV ONE (03:44)
[2023-05-02 04:11] LABS: Absolute Neutrophil Ct (ANC) 13.15 x10^3/uL (1.4-6.9); BASOPHIL % 0.2 % (0.0-0.4); Basophil (Absolute #) 0.03 x10^3/uL (0-0.4); Eosinophil % 0.1 % (0.00-5.0); Eosinophil (Absolute #) 0.02 x10^3/uL (0-0.5); Hematocrit 36.9 % (35-47); Hemoglobin 11.9 g/dL (12.0-16.0); IMMATURE GRAN # 0.14 x10^3u/L (0.00-0.03); IMMATURE GRAN % 0.8 % (0.00-0.4); Lymphocyte (Absolute #) 3.35 x10^3/uL (1.0-4.6); Lymphocytes % 19.2 % (24.0-44.0); Mean Cell Volume 94.9 fL (78-100); Mean Corpuscular Hemoglobin 30.6 pg (26-32); Mean Corpuscular Hgb Concent. 32.2 g/dL (32-36); Mean Platelet Volume 8.2 fL (7.5-11.0); Monocyte (Absolute #) 0.76 x10^3/uL (0.0-1.3); Monocytes % 4.4 % (0.0-12.0); Neutrophil % 75.3 % (36.0-66.0); Platelet Count 332 x10^3/uL (150-450); Red Blood Count 3.89 x10^6/uL (4.1-5.4); Red Cell Distribution Width 12.8 % (11.5-14.0); White Blood Count 17.5 x10^3/uL (4.0-10.5)
[2023-05-02 04:18] LABS: ALBUMIN 3.4 g/dL (3.5-5.0); BILIRUBIN,TOTAL 0.4 mg/dL (0.2-1.3); Calcium 8.9 mg/dL (8.4-10.2); Creatinine 1 0.58 mg/dL (0.52-1.04); EST GLOMERULAR FILTRATION RATE 97.3 ML/MIN; Potassium 3.6 mmol/L (3.5-5.1); Total Protein 5.9 g/dL (6.3-8.2)
[2023-05-02 04:29] LABS: NT PRO BNPII 163 pg/mL (<300); TROPONIN < 0.012 ng/mL (0.000-0.034)
[2023-05-02 04:33] LABS: INFLUENZA A NEGATIVE (NEGATIVE); INFLUENZA B NEGATIVE (NEGATIVE); RESPIRATORY SYNCTIAL VIRUS NEGATIVE (NEGATIVE); SARS-CoV-2 Xpert Express NEGATIVE (NEGATIVE)
[2023-05-02] MEDS ORDERED: PIPERACILLIN/TAZOBACTAM 3.375 GM in Sodium Chloride 100ML MINI-BAG PLUS 100 ML IV ONE (06:28)
[2023-05-02] MEDS ORDERED: PIPERACILLIN/TAZOBACTAM IV ONE (06:33)
[2023-05-02] MEDS ORDERED: Sodium Chloride 100ML MINI-BAG PLUS 100 ML IV ONE (06:34)
--- NOTE | 2023-05-02 07:26 | XRAY ---
CLINICAL HISTORY:SOBreath with high D dimer COMPARISON:None. TECHNIQUE:Axial sections of CT chest angiogram were obtained after administration of intravenous contrast. Coronal and sagittal multiplanar reconstructions were obtained along with the maximum Intensity Pixel (MIP) technique. FINDINGS: Non-opacification of subsegmental branches of the lower lobe of the left pulmonary artery, suggestive of pe. Normal main pulmonary artery and the left and right main pulmonary trunks. A calcified nodule was seen in the lingula measuring 7.8 mm. Increased interstitial lung markings. Heart size is normal, and there is no pericardial effusion. Bilateral interstitial lung shadowing and thickening of interlobular septa. The atelectatic band is seen in both lower lung lobes Vertebral spondylitic changes. Atherosclerotic calcification of the aorta. Left renal cyst. IMPRESSION: Non-opacification of subsegmental branches of the lower lobe of the left pulmonary artery is suggestive of left distal PE. Interstitial lung markings. Parenchymal lung processes such as infection or chronic lung disease may be present. Suggest follow-up chest CT in 3 months. [facility] ER was called at [phone] at 06:19 AM SURGERY SCHEDULING COORDINATOR, 05/02/[address] Hawk was informed about medical critical findings. Electronically Signed by: Dahlia Singleton MD. (05/02/2023 07:21:56 EST)
[2023-05-02] MEDS ORDERED: ENOXAPARIN SODIUM SQ STA (07:33)
[2023-05-02 07:48] LABS: INR 0.96 (0.8-3.0); PROTIME 10.5 SECONDS (9.4-12.5); PTT 27.9 SECONDS (25.1-36.5)
[2023-05-02] MEDS ORDERED: ENOXAPARIN SODIUM SQ ONE (07:48)
--- NOTE | 2023-05-02 08:42 | XRAY ---
Indication: Short of breath 3 days. COPD. Comparison: August 04, 2019 Portable chest again hyperinflated with minimal left base subsegmental atelectasis/scarring and small left base calcified granuloma. Remaining heart and lungs unremarkable again with left Port-A-Cath. Bony thorax intact again with osteopenia and mild degenerative changes. Impression: Continued nonacute hyperinflated chest with chronic features.
[2023-05-02] MEDS: Advair Hfa 115/21 Common canister IH SCH ×2 (11:19→19:25)
[2023-05-02] MEDS: PROVENTIL 2.5 MG/3 ML NEB IH SCH ×3 (11:19→19:24)
[2023-05-02] MEDS ORDERED: PROVENTIL 2.5 MG/3 ML NEB IH SCH (13:00)
[2023-05-02] MEDS ORDERED: SYNTHROID 100 MCG PO SCH (13:00)
[2023-05-02] MEDS ORDERED: DUONEB 0.5-3 MG/3 ml Neb IH SCH (13:00)
[2023-05-02] MEDS: solu-MEDROL 40 MG, Sterile H2O 10 ml 1 ML IV SCH ×4 (14:46→21:07)
[2023-05-02] MEDS: Protonix 40MG Tablet PO SCH (14:47)
[2023-05-02] MEDS: Zestril 10 MG PO SCH (14:47)
[2023-05-02] MEDS: PIPERACILLIN/TAZOBACTAM 4.5 GM in Sodium Chloride 100ML MINI-BAG PLUS 100 ML IV SCH ×2 (14:55→21:11)
[2023-05-02] MEDS ORDERED: HUMALOG SQ PRN (16:14)
--- NOTE | 2023-05-02 16:15 | PCM.HP ---
History of Present Illness - Chief Complaint Chief Complaint: pneumonia Date: 05/02/23 History of Present Illness: is a 72 year old female with a PMHX of Hypothyroidism, COPD, Type II DM, HTN, hyperlipidemia, Eaton Lambert syndrome, and home O2 of 2LNC. She was at home and progressively became SOB over a period of a 2-3 days. Sxs were getting worse with activity and laying down.. Prior to coming in she increased her oxygen to 5LNC an was still SOB and O2 dropped into the 80s on home pulse ox so she called called EMS. She improved quickly with a breathing treatment on the way in ambulance. She is c/o some chest tightness with breathing - denies Hx CAD. Coughing up yellow production, no fever. She is having some diarrhea. CT of chest completed and confirms PE, COPD, and possible pneumonia. Antibiotics, breathing txs, and therapeutic Lovenox started. She is feeling better since admission. - Review of Systems Constitutional: No Fever, No Chills Eyes: No Symptoms Ears, Nose, & Throat: No Symptoms Respiratory: Cough, Short Of Breath Cardiac: Chest Pain, No Edema, No Syncope Abdominal/Gastrointestinal: Diarrhea, No Abdominal Pain, No Nausea, No Vomiting Genitourinary Symptoms: No Dysuria Musculoskeletal: No Back Pain, No Neck Pain Skin: No Rash Neurological: No Dizziness, No Focal Weakness, No Sensory Changes Psychological: No Symptoms Endocrine: No Symptoms Hematologic/Lymphatic: No Symptoms Immunological/Allergic: No Symptoms Medications & Allergies Home Medications: Home Medication List Levothyroxine Sodium 100 Mcg [Synthroid 100 Mcg] 100 mcg PO DAILY 08/04/19 [History Confirmed 05/02/23] Lisinopril 10 mg [Zestril 10 MG] 10 mg PO DAILY 08/04/19 [History Confirmed 05/02/23] PANTOPRAZOLE 40 mg Tablet [Protonix 40MG Tablet] 40 mg PO QAM 08/04/19 [History Confirmed 05/02/23] Simvastatin 80 mg PO HS 08/04/19 [History Confirmed 05/02/23] Sitagliptin Phos/Metformin HCl [Janumet 50-1,000 mg Tablet] 1,000 mg PO HS 08/04/19 [History Confirmed 05/02/23] Albuterol 2.5 mg/3 ml Neb [Proventil 2.5 mg/3 ml Neb] 2.5 mg IH QID 05/02/23 [History Confirmed 05/02/23] Fluticasone/Umeclidin/Vilanter [Trelegy Ellipta 100-62.5-25] 1 each IH DAILY 05/02/23 [History Confirmed 05/02/23] Gabapentin 100 mg PO HS 05/02/23 [History Confirmed 05/02/23] Allergies/Adverse Reactions: Allergies Allergy/AdvReac Type Severity Reaction Status Date / Time No Known Drug Allergies Allergy Verified 05/02/23 03:16 - Past Medical History Past Medical History: Yes Neurological History: No Pertinent History ENT History: No Pertinent History Cardiac History: High Cholesterol, Hypertension Respiratory History: Pneumonia Endocrine Medical History: Diabetes Type II, Hyperthyroidism Musculoskelatal History: No Pertinent History GI Medical History: No Pertinent History History: No Pertinent History Pyscho-Social History: No Pertinent History Reproductive Disorders: No Pertinent History Comment: Lambert-Eaton syndrome - Female History Are you now?: No - Past Surgical History Past Surgical History: Yes Neuro Surgical History: No Pertinent History Cardiac History: No Pertinent History Respiratory Surgery: No Pertinent History GI Surgical History: No Pertinent History Genitourinary Surgical Hx: No Pertinent History Musculskeletal Surgical Hx: No Pertinent History Female Surgical History: No Pertinent History Other Surgical History: port a cath L upper chest - Social History Smoking Status: Former smoker Exposure to second hand smoke: Yes Alcohol: None Drug Use: none Significant Family History: no pertinent family hx - Physical Exam Vital Signs: Vital Signs - 24 hr Temp Pulse Resp BP BP Pulse Ox 05/02/23 14:33 76 22 97 05/02/23 11:46 97 F 76 20 124/73 98 05/02/23 11:22 76 20 98 05/02/23 09:06 97 F 79 19 124/73 97 05/02/23 09:02 97 05/02/23 08:35 70 23 96/55 96 05/02/23 08:00 78 25 H 107/54 96 05/02/23 07:30 79 22 94/44 96 05/02/23 07:00 82 23 94/64 95 05/02/23 06:59 98 05/02/23 06:30 79 24 99/72 96 05/02/23 06:23 83 26 H 104/63 95 05/02/23 05:00 88 24 91/59 92 L 05/02/23 04:58 23 93 L 05/02/23 04:30 95 H 27 H 115/41 93 L 05/02/23 03:38 93 L 05/02/23 03:21 100.0 F 107 H 29 H 148/51 93 L General Appearance: no apparent distress, alert Neurologic Exam: alert, oriented x 3, cooperative, normal mood/affect, nml cerebellar function, nml station & gait, sensation nml, No motor deficits Eye Exam: PERRL/EOMI, eyes nml inspection Ears, Nose, Throat Exam: normal ENT inspection, TMs normal, pharynx normal, moist mucous membranes Neck Exam: normal inspection, non-tender, supple, full range of motion Respiratory Exam: normal breath sounds, lungs clear, diminished breath sounds, wheezing, No respiratory distress Cardiovascular Exam: regular rate/rhythm, normal heart sounds, normal peripheral pulses Gastrointestinal/Abdomen Exam: soft, normal bowel sounds, No tenderness, No mass Back Exam: normal inspection, normal range of motion, No CVA tenderness, No vertebral tenderness Extremity Exam: normal inspection, normal range of motion, pelvis stable Skin Exam: normal color, warm, dry, No rash Lymphatic Exam: No adenopathy Results - Labs Lab/Micro Results: Lab Results-Last 24 Hours 05/02/23 05/02/23 05/02/23 Range/Units 03:55 03:55 03:55 WBC 17.5 H (4.0-10.5) x10^3/uL RBC 3.89 L (4.1-5.4) x10^6/uL Hgb 11.9 L (12.0-16.0) g/dL Hct 36.9 (35-47) % MCV 94.9 (78-100) fL MCH 30.6 (26-32) pg MCHC 32.2 (32-36) g/dL RDW 12.8 (11.5-14.0) % Plt Count 332 (150-450) x10^3/uL MPV 8.2 (7.5-11.0) fL Gran % 75.3 H (36.0-66.0) % Immature Gran % (Auto) 0.8 H (0.00-0.4) % Nucleat RBC Rel Count 0.0 (0.00-0.1) % Eos # (Auto) 0.02 (0-0.5) x10^3/uL Immature Gran # (Auto) 0.14 H (0.00-0.03) x10^3u/L Absolute Lymphs (auto) 3.35 (1.0-4.6) x10^3/uL Absolute Monos (auto) 0.76 (0.0-1.3) x10^3/uL Absolute Nucleated RBC 0.00 (0.00-0.01) x10^3u/L Lymphocytes % 19.2 L (24.0-44.0) % Monocytes % 4.4 (0.0-12.0) % Eosinophils % 0.1 (0.00-5.0) % Basophils % 0.2 (0.0-0.4) % Absolute Granulocytes 13.15 H (1.4-6.9) x10^3/uL Basophils # 0.03 (0-0.4) x10^3/uL PT (9.4-12.5) SECONDS INR (0.8-3.0) APTT (25.1-36.5) SECONDS D-Dimer 0.59 H (0.0-0.50) mg/L Sodium 133 L (137-145) mmol/L Potassium 3.6 (3.5-5.1) mmol/L Chloride 97 L (98-107) mmol/L Carbon Dioxide 27 (22-30) mmol/L Anion Gap 12.0 (5-15) MEQ/L BUN 15 (7-17) mg/dL Creatinine 0.58 (0.52-1.04) mg/dL Estimated GFR 97.3 ML/MIN Glucose 133 H (74-106) mg/dL POC Glucometer (74 to 106) mg/dL Hemoglobin A1c (4.5-6.0) % Calcium 8.9 (8.4-10.2) mg/dL Total Bilirubin 0.40 (0.2-1.3) mg/dL AST 21 (14-36) U/L ALT 11 (0-35) U/L Alkaline Phosphatase 90 (38-126) U/L Troponin I (0.000-0.034) ng/mL NT-Pro-B Natriuret Pep (<300) pg/mL Serum Total Protein 5.9 L (6.3-8.2) g/dL Albumin 3.4 L (3.5-5.0) g/dL Influenza Type A Ag (NEGATIVE) Influenza Type B Ag (NEGATIVE) RSV (PCR) (NEGATIVE) SARS-CoV-2 (PCR) (NEGATIVE) 05/02/23 05/02/23 05/02/23 Range/Units 03:55 03:55 03:55 WBC (4.0-10.5) x10^3/uL RBC (4.1-5.4) x10^6/uL Hgb (12.0-16.0) g/dL Hct (35-47) % MCV (78-100) fL MCH (26-32) pg MCHC (32-36) g/dL RDW (11.5-14.0) % Plt Count (150-450) x10^3/uL MPV (7.5-11.0) fL Gran % (36.0-66.0) % Immature Gran % (Auto) (0.00-0.4) % Nucleat RBC Rel Count (0.00-0.1) % Eos # (Auto) (0-0.5) x10^3/uL Immature Gran # (Auto) (0.00-0.03) x10^3u/L Absolute Lymphs (auto) (1.0-4.6) x10^3/uL Absolute Monos (auto) (0.0-1.3) x10^3/uL Absolute Nucleated RBC (0.00-0.01) x10^3u/L Lymphocytes % (24.0-44.0) % Monocytes % (0.0-12.0) % Eosinophils % (0.00-5.0) % Basophils % (0.0-0.4) % Absolute Granulocytes (1.4-6.9) x10^3/uL Basophils # (0-0.4) x10^3/uL PT 10.5 (9.4-12.5) SECONDS INR 0.96 (0.8-3.0) APTT 27.9 (25.1-36.5) SECONDS D-Dimer (0.0-0.50) mg/L Sodium (137-145) mmol/L Potassium (3.5-5.1) mmol/L Chloride (98-107) mmol/L Carbon Dioxide (22-30) mmol/L Anion Gap (5-15) MEQ/L BUN (7-17) mg/dL Creatinine (0.52-1.04) mg/dL Estimated GFR ML/MIN Glucose (74-106) mg/dL POC Glucometer (74 to 106) mg/dL Hemoglobin A1c (4.5-6.0) % Calcium (8.4-10.2) mg/dL Total Bilirubin (0.2-1.3) mg/dL AST (14-36) U/L ALT (0-35) U/L Alkaline Phosphatase (38-126) U/L Troponin I < 0.012 (0.000-0.034) ng/mL NT-Pro-B Natriuret Pep 163 (<300) pg/mL Serum Total Protein (6.3-8.2) g/dL Albumin (3.5-5.0) g/dL Influenza Type A Ag NEGATIVE (NEGATIVE) Influenza Type B Ag NEGATIVE (NEGATIVE) RSV (PCR) NEGATIVE (NEGATIVE) SARS-CoV-2 (PCR) NEGATIVE (NEGATIVE) 05/02/23 05/02/23 05/02/23 Range/Units 05:00 06:40 11:15 WBC (4.0-10.5) x10^3/uL RBC (4.1-5.4) x10^6/uL Hgb (12.0-16.0) g/dL Hct (35-47) % MCV (78-100) fL MCH (26-32) pg MCHC (32-36) g/dL RDW (11.5-14.0) % Plt Count (150-450) x10^3/uL MPV (7.5-11.0) fL Gran % (36.0-66.0) % Immature Gran % (Auto) (0.00-0.4) % Nucleat RBC Rel Count (0.00-0.1) % Eos # (Auto) (0-0.5) x10^3/uL Immature Gran # (Auto) (0.00-0.03) x10^3u/L Absolute Lymphs (auto) (1.0-4.6) x10^3/uL Absolute Monos (auto) (0.0-1.3) x10^3/uL Absolute Nucleated RBC (0.00-0.01) x10^3u/L Lymphocytes % (24.0-44.0) % Monocytes % (0.0-12.0) % Eosinophils % (0.00-5.0) % Basophils % (0.0-0.4) % Absolute Granulocytes (1.4-6.9) x10^3/uL Basophils # (0-0.4) x10^3/uL PT (9.4-12.5) SECONDS INR (0.8-3.0) APTT (25.1-36.5) SECONDS D-Dimer (0.0-0.50) mg/L Sodium (137-145) mmol/L Potassium (3.5-5.1) mmol/L Chloride (98-107) mmol/L Carbon Dioxide (22-30) mmol/L Anion Gap (5-15) MEQ/L BUN (7-17) mg/dL Creatinine (0.52-1.04) mg/dL Estimated GFR ML/MIN Glucose (74-106) mg/dL POC Glucometer (74 to 106) mg/dL Hemoglobin A1c 4.88 (4.5-6.0) % Calcium (8.4-10.2) mg/dL Total Bilirubin (0.2-1.3) mg/dL AST (14-36) U/L ALT (0-35) U/L Alkaline Phosphatase (38-126) U/L Troponin I < 0.012 < 0.012 (0.000-0.034) ng/mL NT-Pro-B Natriuret Pep (<300) pg/mL Serum Total Protein (6.3-8.2) g/dL Albumin (3.5-5.0) g/dL Influenza Type A Ag (NEGATIVE) Influenza Type B Ag (NEGATIVE) RSV (PCR) (NEGATIVE) SARS-CoV-2 (PCR) (NEGATIVE) 05/02/23 Range/Units 11:42 WBC (4.0-10.5) x10^3/uL RBC (4.1-5.4) x10^6/uL Hgb (12.0-16.0) g/dL Hct (35-47) % MCV (78-100) fL MCH (26-32) pg MCHC (32-36) g/dL RDW (11.5-14.0) % Plt Count (150-450) x10^3/uL MPV (7.5-11.0) fL Gran % (36.0-66.0) % Immature Gran % (Auto) (0.00-0.4) % Nucleat RBC Rel Count (0.00-0.1) % Eos # (Auto) (0-0.5) x10^3/uL Immature Gran # (Auto) (0.00-0.03) x10^3u/L Absolute Lymphs (auto) (1.0-4.6) x10^3/uL Absolute Monos (auto) (0.0-1.3) x10^3/uL Absolute Nucleated RBC (0.00-0.01) x10^3u/L Lymphocytes % (24.0-44.0) % Monocytes % (0.0-12.0) % Eosinophils % (0.00-5.0) % Basophils % (0.0-0.4) % Absolute Granulocytes (1.4-6.9) x10^3/uL Basophils # (0-0.4) x10^3/uL PT (9.4-12.5) SECONDS INR (0.8-3.0) APTT (25.1-36.5) SECONDS D-Dimer (0.0-0.50) mg/L Sodium (137-145) mmol/L Potassium (3.5-5.1) mmol/L Chloride (98-107) mmol/L Carbon Dioxide (22-30) mmol/L Anion Gap (5-15) MEQ/L BUN (7-17) mg/dL Creatinine (0.52-1.04) mg/dL Estimated GFR ML/MIN Glucose (74-106) mg/dL POC Glucometer 157 H (74 to 106) mg/dL Hemoglobin A1c (4.5-6.0) % Calcium (8.4-10.2) mg/dL Total Bilirubin (0.2-1.3) mg/dL AST (14-36) U/L ALT (0-35) U/L Alkaline Phosphatase (38-126) U/L Troponin I (0.000-0.034) ng/mL NT-Pro-B Natriuret Pep (<300) pg/mL Serum Total Protein (6.3-8.2) g/dL Albumin (3.5-5.0) g/dL Influenza Type A Ag (NEGATIVE) Influenza Type B Ag (NEGATIVE) RSV (PCR) (NEGATIVE) SARS-CoV-2 (PCR) (NEGATIVE) Accuchecks Date 05/02/23 Time 11:45 - Radiology Impressions Radiology Exams & Impressions: Radiology Procedures Category Date Time Status CHEST 1 VIEW (PORTABLE) Stat Exams 05/02/23 03:27 Completed CHEST WITH CONTRAST [CT] Stat Exams 05/02/23 05:22 Completed - Other Procedures and Tests Respiratory Therapy 05/02/23 09:02 Oxygen Nasal Cannula 4 lpm 05/03/23 07:00 Respiratory Therapy Assessment DAILY Assessment/Plan (1) Pulmonary embolism Current Visit: Yes Status: Acute Assessment & Plan: -D-Dimer 0.59 - CT chest with contrast 05/02/23 IMPRESSION: Non-opacification of subsegmental branches of the lower lobe of the left pulmonary artery is suggestive of left distal PE. Interstitial lung markings. Parenchymal lung processes such as infection or chronic lung disease may be present. Suggest follow-up chest CT in 3 months. - trop X3 negative - started therapeutic Lovenox - Echo, venous duplex- tomorrow - Consider cards consult - Tele - O2 95% on 4LNC Code(s): I26.99 - OTHER PULMONARY EMBOLISM WITHOUT ACUTE COR PULMONALE (2) Pneumonia Current Visit: Yes Status: Acute Assessment & Plan: - Zosyn, advair, proventil, solumedrol - On 4LNC- 95% - BL 2lNC - Sputum culture pending - Mucinex BID Code(s): J18.9 - PNEUMONIA, UNSPECIFIED ORGANISM (3) Chest tightness Current Visit: Yes Status: Acute Assessment & Plan: - Most likely r/t PE and pneumonia - Trop x3 negative - Echo in AM - Consider cardiology consult Code(s): R07.89 - OTHER CHEST PAIN (4) COPD with acute exacerbation Current Visit: Yes Status: Acute Assessment & Plan: - Zosyn, advair, proventil, solumedrol - On 4LNC- 95% - BL 2lNC Code(s): J44.1 - CHRONIC OBSTRUCTIVE PULMONARY DISEASE W (ACUTE) EXACERBATION (5) HTN (hypertension) Current Visit: Yes Status: Acute Assessment & Plan: - Continue Lisinopril - BP stable Code(s): I10 - ESSENTIAL (PRIMARY) HYPERTENSION (6) Type II diabetes mellitus, well controlled Current Visit: Yes Status: Acute Assessment & Plan: - A1C 4.88 - Continue Metformin and Januvia - accuchecks AC/HS - low dose s/s added as pt is getting steriods and may increase glucose - ADA diet Code(s): E11.9 - TYPE 2 DIABETES MELLITUS WITHOUT COMPLICATIONS (7) Hypothyroidism Current Visit: Yes Status: Acute Assessment & Plan: - Continue synthroid - TSH in AM Code(s): E03.9 - HYPOTHYROIDISM, UNSPECIFIED (8) Hyponatremia Current Visit: Yes Status: Acute Assessment & Plan: - Na+ 133 -IV fluids gave in ER - trend Code(s): E87.1 - HYPO-OSMOLALITY AND HYPONATREMIA (9) Hyperlipidemia Current Visit: Yes Status: Acute Assessment & Plan: - Continue statin VTE: Lovenox PPI: protonix Next of Kin: Juan Carlos Gomes ( spouse) [phone], D/C plan: 2-3 days Code status: Full Code(s): E78.5 - HYPERLIPIDEMIA, UNSPECIFIED
[2023-05-02] MEDS: ENOXAPARIN SODIUM SQ SCH (21:06)
[2023-05-02] MEDS: Neurontin PO SCH (21:09)
[2023-05-02] MEDS: Januvia 50 MG PO SCH (21:09)
[2023-05-02] MEDS: Mucinex 600MG ER Tabs PO SCH (21:09)
[2023-05-02] MEDS: ZOCOR 20MG PO SCH (21:10)
[2023-05-02] MEDS: Glucophage 500 MG PO SCH (21:10)
[2023-05-02] MEDS ORDERED: NON-FORMULARY ITEM (Sitagliptin Phos/Metformin Hcl [Janumet 50-1,000 Mg Tablet] 1 EACH Tab PO SCH (22:00)
[2023-05-02] MEDS ORDERED: NON-FORMULARY ITEM (Simvastatin [Simvastatin] 80 MG Tablet) PO SCH (22:00)
[2023-05-03] MEDS: Advair Hfa 115/21 Common canister IH SCH ×2 (04:54→18:36)
[2023-05-03] MEDS: PROVENTIL 2.5 MG/3 ML NEB IH SCH ×4 (04:54→18:35)
[2023-05-03 04:56] LABS: Hematocrit 33.1 % (35-47); Hemoglobin 10.4 g/dL (12.0-16.0); Mean Cell Volume 95.7 fL (78-100); Mean Corpuscular Hemoglobin 30.1 pg (26-32); Mean Corpuscular Hgb Concent. 31.4 g/dL (32-36); Mean Platelet Volume 8.5 fL (7.5-11.0); Platelet Count 282 x10^3/uL (150-450); Red Blood Count 3.46 x10^6/uL (4.1-5.4); Red Cell Distribution Width 12.5 % (11.5-14.0); White Blood Count 11.5 x10^3/uL (4.0-10.5)
[2023-05-03 05:18] LABS: ALBUMIN 3.2 g/dL (3.5-5.0); BILIRUBIN,TOTAL 0.2 mg/dL (0.2-1.3); Calcium 8.4 mg/dL (8.4-10.2); Creatinine 1 0.68 mg/dL (0.52-1.04); EST GLOMERULAR FILTRATION RATE 93.6 ML/MIN; Potassium 4.1 mmol/L (3.5-5.1)
--- NOTE | 2023-05-03 05:43 | PCM.NOTE ---
Date and Time: 05/03/23 0541 Subjective Assessment: Ms. 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 CTA is positive for left- sided pulmonary embolism with interstitial findings suggestive of infectious pr ocess. Patient started on Rocephin/zosyn as well as lovenox. Will convert to eliquis after 24 hours. ECHO, venous duplex pending. 05/03/23: Met with patient bedside. States she is feeling better. Continues to endorse increased shortness of breath requiring 4l of oxygen, baseline at 3L and productive cough with yellow sputum. Wheezing is noted on auscultation. Will add solu-medrol today. Discussed TSH level being low, will decrease synthroid to 88mcg from 100mcg. Advised follow up with PCP regarding this change for re- evaluation - Review of Systems Constitutional: No Symptoms Eyes: No Symptoms Ears, Nose, & Throat: No Symptoms Respiratory: Cough, Short Of Breath Cardiac: No Symptoms Abdominal/Gastrointestinal: No Symptoms Genitourinary Symptoms: No Symptoms Musculoskeletal: No Symptoms Neurological: No Symptoms Psychological: No Symptoms Endocrine: No Symptoms Hematologic/Lymphatic: No Symptoms Objective Exam General Appearance: no apparent distress Neurologic Exam: alert, oriented x 3, cooperative Skin Exam: normal color Eye Exam: PERRL Ears, Nose, Throat Exam: normal ENT inspection Neck Exam: normal inspection Respiratory Exam: crackles/rales, wheezing Cardiovascular Exam: regular rate/rhythm, normal heart sounds Gastrointestinal/Abdomen Exam: soft, normal bowel sounds Extremity Exam: normal inspection Back Exam: normal inspection Pelvic Exam: deferred OBJECTIVE DATA Vital Signs: Vital Signs - 24 hr Temp Pulse Resp BP BP Pulse Ox 05/03/23 04:58 75 18 99 05/03/23 04:00 97.0 F 67 18 113/63 97 05/03/23 00:00 96.6 F 68 18 119/56 98 05/02/23 20:00 97.9 F 73 20 114/57 96 05/02/23 19:25 77 16 98 05/02/23 16:00 98.2 F 84 20 115/56 95 05/02/23 14:33 76 22 97 05/02/23 11:46 97 F 76 20 124/73 98 05/02/23 11:22 76 20 98 05/02/23 09:06 97 F 79 19 124/73 97 05/02/23 09:02 97 05/02/23 08:35 70 23 96/55 96 05/02/23 08:00 78 25 H 107/54 96 05/02/23 07:30 79 22 94/44 96 05/02/23 07:00 82 23 94/64 95 05/02/23 06:59 98 05/02/23 06:30 79 24 99/72 96 05/02/23 06:23 83 26 H 104/63 95 Pain Assessment - Last Documented Pain Intensity 0 Intake and Output: Intake & Output 04/30/23 05/01/23 05/02/23 05/03/23 11:59 11:59 11:59 11:59 Intake Total 1865 Balance 1865 Weight 68.5 kg Lab Results: Lab Results-Last 24 Hours 05/02/23 05/02/23 05/02/23 Range/Units 03:55 05:00 06:40 WBC (4.0-10.5) x10^3/uL RBC (4.1-5.4) x10^6/uL Hgb (12.0-16.0) g/dL Hct (35-47) % MCV (78-100) fL MCH (26-32) pg MCHC (32-36) g/dL RDW (11.5-14.0) % Plt Count (150-450) x10^3/uL MPV (7.5-11.0) fL PT 10.5 (9.4-12.5) SECONDS INR 0.96 (0.8-3.0) APTT 27.9 (25.1-36.5) SECONDS Sodium (137-145) mmol/L Potassium (3.5-5.1) mmol/L Chloride (98-107) mmol/L Carbon Dioxide (22-30) mmol/L Anion Gap (5-15) MEQ/L BUN (7-17) mg/dL Creatinine (0.52-1.04) mg/dL Estimated GFR ML/MIN Glucose (74-106) mg/dL POC Glucometer (74 to 106) mg/dL Hemoglobin A1c 4.88 (4.5-6.0) % Calcium (8.4-10.2) mg/dL Total Bilirubin (0.2-1.3) mg/dL AST (14-36) U/L ALT (0-35) U/L Alkaline Phosphatase (38-126) U/L Troponin I < 0.012 (0.000-0.034) ng/mL Serum Total Protein (6.3-8.2) g/dL Albumin (3.5-5.0) g/dL 05/02/23 05/02/23 05/02/23 Range/Units 11:15 11:42 16:42 WBC (4.0-10.5) x10^3/uL RBC (4.1-5.4) x10^6/uL Hgb (12.0-16.0) g/dL Hct (35-47) % MCV (78-100) fL MCH (26-32) pg MCHC (32-36) g/dL RDW (11.5-14.0) % Plt Count (150-450) x10^3/uL MPV (7.5-11.0) fL PT (9.4-12.5) SECONDS INR (0.8-3.0) APTT (25.1-36.5) SECONDS Sodium (137-145) mmol/L Potassium (3.5-5.1) mmol/L Chloride (98-107) mmol/L Carbon Dioxide (22-30) mmol/L Anion Gap (5-15) MEQ/L BUN (7-17) mg/dL Creatinine (0.52-1.04) mg/dL Estimated GFR ML/MIN Glucose (74-106) mg/dL POC Glucometer 157 H 137 H (74 to 106) mg/dL Hemoglobin A1c (4.5-6.0) % Calcium (8.4-10.2) mg/dL Total Bilirubin (0.2-1.3) mg/dL AST (14-36) U/L ALT (0-35) U/L Alkaline Phosphatase (38-126) U/L Troponin I < 0.012 (0.000-0.034) ng/mL Serum Total Protein (6.3-8.2) g/dL Albumin (3.5-5.0) g/dL 12/03/1505/03/23 05/03/23 Range/Units 20:31 04:50 04:50 WBC 11.5 H (4.0-10.5) x10^3/uL RBC 3.46 L (4.1-5.4) x10^6/uL Hgb 10.4 L (12.0-16.0) g/dL Hct 33.1 L (35-47) % MCV 95.7 (78-100) fL MCH 30.1 (26-32) pg MCHC 31.4 L (32-36) g/dL RDW 12.5 (11.5-14.0) % Plt Count 282 (150-450) x10^3/uL MPV 8.5 (7.5-11.0) fL PT (9.4-12.5) SECONDS INR (0.8-3.0) APTT (25.1-36.5) SECONDS Sodium 134 L (137-145) mmol/L Potassium 4.1 (3.5-5.1) mmol/L Chloride 97 L (98-107) mmol/L Carbon Dioxide 29 (22-30) mmol/L Anion Gap 12.0 (5-15) MEQ/L BUN 19 H (7-17) mg/dL Creatinine 0.68 (0.52-1.04) mg/dL Estimated GFR 93.6 ML/MIN Glucose 122 H (74-106) mg/dL POC Glucometer 139 H (74 to 106) mg/dL Hemoglobin A1c (4.5-6.0) % Calcium 8.4 (8.4-10.2) mg/dL Total Bilirubin 0.20 (0.2-1.3) mg/dL AST 20 (14-36) U/L ALT 15 (0-35) U/L Alkaline Phosphatase 68 (38-126) U/L Troponin I (0.000-0.034) ng/mL Serum Total Protein 6.0 L (6.3-8.2) g/dL Albumin 3.2 L (3.5-5.0) g/dL Radiology Exams: Radiology Procedures Category Date Time Status CHEST 1 VIEW (PORTABLE) Stat Exams 05/02/23 03:27 Completed CHEST WITH CONTRAST [CT] Stat Exams 05/02/23 05:22 Completed ECHO W/2D AND DOPPLER [US] Routine Exams 05/03/23 08:00 Ordered VENOUS BILATERAL EXTREMITY [US] Routine Exams 05/03/23 09:00 Ordered Assessment/Plan (1) Pulmonary embolism Current Visit: Yes Status: Acute Assessment & Plan: -D-Dimer 0.59 - CT chest with contrast 05/02/23 IMPRESSION: Non-opacification of subsegmental branches of the lower lobe of the left pulmonary artery is suggestive of left distal PE. Interstitial lung markings. Parenchymal lung processes such as infection or chronic lung disease may be present. Suggest follow-up chest CT in 3 months. - trop X3 negative - started therapeutic Lovenox - Echo, venous duplex- tomorrow - Consider cards consult - Tele - O2 95% on 4LNC 05/03: -Start eliquis, 10mg bid dosing x 7 days 5mg bid dosing thereafter, rx sent to pharm to check pricing Code(s): I26.99 - OTHER PULMONARY EMBOLISM WITHOUT ACUTE COR PULMONALE (2) Pneumonia Current Visit: Yes Status: Acute Assessment & Plan: - Zosyn, advair, proventil, solumedrol - On 4LNC- 95% - BL 2lNC - Sputum culture pending - Mucinex BID 05/03: -Add solumedrol -Continue zosyn Code(s): J18.9 - PNEUMONIA, UNSPECIFIED ORGANISM (3) Chest tightness Current Visit: Yes Status: Acute Assessment & Plan: - Most likely r/t PE and pneumonia - Trop x3 negative - Echo in AM - Consider cardiology consult 05/03: -Echo pending -Denies CP today Code(s): R07.89 - OTHER CHEST PAIN (4) COPD with acute exacerbation Current Visit: Yes Status: Acute Assessment & Plan: - Zosyn, advair, proventil, solumedrol - On 4LNC- 95% - BL 2lNC Code(s): J44.1 - CHRONIC OBSTRUCTIVE PULMONARY DISEASE W (ACUTE) EXACERBATION (5) HTN (hypertension) Current Visit: Yes Status: Acute Assessment & Plan: - Continue Lisinopril - BP stable Code(s): I10 - ESSENTIAL (PRIMARY) HYPERTENSION (6) Type II diabetes mellitus, well controlled Current Visit: Yes Status: Acute Assessment & Plan: - A1C 4.88 - Continue Metformin and Januvia - accuchecks AC/HS - low dose s/s added as pt is getting steriods and may increase glucose - ADA diet Code(s): E11.9 - TYPE 2 DIABETES MELLITUS WITHOUT COMPLICATIONS (7) Hypothyroidism Current Visit: Yes Status: Acute Assessment & Plan: - Continue synthroid - TSH in AM 05/03: -TSH low, will decrease dose to 88mcg Code(s): E03.9 - HYPOTHYROIDISM, UNSPECIFIED (8) Hyponatremia Current Visit: Yes Status: Acute Assessment & Plan: - Na+ 133 -IV fluids gave in ER - trend 05/03: -improving Code(s): E87.1 - HYPO-OSMOLALITY AND HYPONATREMIA (9) Hyperlipidemia Current Visit: Yes Status: Acute Assessment & Plan: - Continue statin VTE: Lovenox PPI: protonix Next of Kin: Juan Carlos Gomes ( spouse) [phone], D/C plan: 2-3 days Code status: Full Code(s): E78.5 - HYPERLIPIDEMIA, UNSPECIFIED Code(s): I26.99 - OTHER PULMONARY EMBOLISM WITHOUT ACUTE COR PULMONALE (2) COPD with acute exacerbation Current Visit: Yes Status: Acute Code(s): J44.1 - CHRONIC OBSTRUCTIVE PULMONARY DISEASE W (ACUTE) EXACERBATION (3) Chest tightness Current Visit: Yes Status: Acute Code(s): R07.89 - OTHER CHEST PAIN (4) HTN (hypertension) Current Visit: Yes Status: Acute Code(s): I10 - ESSENTIAL (PRIMARY) HYPERTENSION (5) Hyperlipidemia Current Visit: Yes Status: Acute Code(s): E78.5 - HYPERLIPIDEMIA, UNSPECIFIED (6) Hyponatremia Current Visit: Yes Status: Acute Code(s): E87.1 - HYPO-OSMOLALITY AND HYPONATREMIA (7) Hypothyroidism Current Visit: Yes Status: Acute Code(s): E03.9 - HYPOTHYROIDISM, UNSPECIFIED (8) Pneumonia Current Visit: Yes Status: Acute Code(s): J18.9 - PNEUMONIA, UNSPECIFIED ORGANISM (9) Type II diabetes mellitus, well controlled Current Visit: Yes Status: Acute Code(s): E11.9 - TYPE 2 DIABETES MELLITUS WITHOUT COMPLICATIONS
[2023-05-03] MEDS: PIPERACILLIN/TAZOBACTAM 4.5 GM in Sodium Chloride 100ML MINI-BAG PLUS 100 ML IV SCH ×3 (06:16→21:32)
[2023-05-03] MEDS ORDERED: SYNTHROID 100 MCG PO SCH (07:44)
[2023-05-03] MEDS ORDERED: ENOXAPARIN SODIUM SQ SCH (08:00)
[2023-05-03] MEDS: ENOXAPARIN SODIUM SQ SCH (09:16)
[2023-05-03] MEDS: solu-MEDROL 40 MG, Sterile H2O 10 ml 1 ML IV SCH ×4 (09:52→21:30)
[2023-05-03] MEDS: Protonix 40MG Tablet PO SCH (09:55)
[2023-05-03] MEDS: Mucinex 600MG ER Tabs PO SCH ×2 (09:55→21:30)
[2023-05-03] MEDS: Zestril 10 MG PO SCH (09:55)
[2023-05-03] MEDS: SYNTHROID 88 MCG PO SCH (09:56)
[2023-05-03] MEDS ORDERED: NON-FORMULARY ITEM (Fluticasone/Umeclidin/Vilanter [Trelegy Ellipta 100-62.5-25] 1 EACH Bl IH SCH (10:00)
--- NOTE | 2023-05-03 12:35 | XRAY ---
Indication: Pulmonary embolus. Elevated d-dimer. Two-dimensional sonogram and color Doppler imaging of the major venous vessels of the left and right leg performed. Comparison: None No thrombus seen in the examined deep venous vessels of the left and right leg including greater saphenous vein. Veins demonstrate normal compressibility. Venous waveforms are normal with and without augmentation. Impression: Left and right legs negative for DVT.
[2023-05-03] MEDS: Glucophage 500 MG PO SCH (21:30)
[2023-05-03] MEDS: ELIQUIS 2.5 MG TABLET PO SCH (21:31)
[2023-05-03] MEDS: ZOCOR 20MG PO SCH (21:31)
[2023-05-03] MEDS: Januvia 50 MG PO SCH (21:31)
[2023-05-03] MEDS: Neurontin PO SCH (21:31)
[2023-05-03] MEDS ORDERED: TYLENOL 325 MG PO PRN (21:40)
[2023-05-04] MEDS: PIPERACILLIN/TAZOBACTAM 4.5 GM in Sodium Chloride 100ML MINI-BAG PLUS 100 ML IV SCH ×3 (05:10→21:17)
--- NOTE | 2023-05-04 05:35 | PCM.NOTE ---
Date and Time: 05/04/23 0534 Subjective Assessment: Ms. 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 CTA is positive for left- sided pulmonary embolism with interstitial findings suggestive of infectious pr ocess. Patient started on Rocephin/zosyn as well as lovenox. Will convert to eliquis after 24 hours. ECHO, venous duplex pending. 05/03/23: Met with patient bedside. States she is feeling better. Continues to endorse increased shortness of breath requiring 4l of oxygen, baseline at 3L and productive cough with yellow sputum. Wheezing is noted on auscultation. Will add solu-medrol today. Discussed TSH level being low, will decrease synthroid to 88mcg from 100mcg. Advised follow up with PCP regarding this change for re- evaluation 05/04: Met with patient bedside. Still endorsing shortness of breath, cough, with wheezing but states she feels improved. On baseline oxygen of 3L. - Review of Systems Constitutional: No Symptoms Eyes: No Symptoms Ears, Nose, & Throat: No Symptoms Respiratory: Cough, Short Of Breath, Wheezing Cardiac: No Symptoms Abdominal/Gastrointestinal: No Symptoms Genitourinary Symptoms: No Symptoms Musculoskeletal: No Symptoms Skin: No Symptoms Neurological: No Symptoms Psychological: No Symptoms Endocrine: No Symptoms Hematologic/Lymphatic: No Symptoms Immunological/Allergic: No Symptoms Objective Exam General Appearance: no apparent distress Neurologic Exam: alert, oriented x 3, cooperative Skin Exam: normal color Eye Exam: PERRL Ears, Nose, Throat Exam: normal ENT inspection Neck Exam: normal inspection Respiratory Exam: diminished breath sounds, wheezing Cardiovascular Exam: regular rate/rhythm, normal heart sounds Gastrointestinal/Abdomen Exam: soft, normal bowel sounds Extremity Exam: normal inspection Back Exam: normal inspection Pelvic Exam: deferred Rectal Exam: deferred OBJECTIVE DATA Vital Signs: Vital Signs - 24 hr Temp Pulse Resp BP Pulse Ox 05/04/23 03:48 94 L 05/03/23 23:46 96.8 F 67 16 116/60 94 L 05/03/23 19:51 97.1 F 89 16 111/56 94 L 05/03/23 18:39 66 20 97 05/03/23 16:00 97 F 65 17 117/56 96 05/03/23 12:00 96.9 F 108 H 23 124/60 98 05/03/23 10:59 79 16 99 05/03/23 08:00 96.6 F 74 19 110/54 100 Pain Assessment - Last Documented Pain Intensity 2 Pain Scale Used 0-10 Pain Scale Intake and Output: Intake & Output 05/01/23 05/02/23 05/03/23 05/04/23 11:59 11:59 11:59 11:59 Intake Total 1984 480 Balance 1984 480 Weight 68.5 kg Lab Results: Lab Results-Last 24 Hours 05/03/23 05/03/23 05/03/23 Range/Units 04:50 05:00 07:41 POC Glucometer 118 H (74 to 106) mg/dL Free T4 1.54 (0.78-2.19) ng/dL TSH 3rd Generation 0.452 L (0.47-4.68) mIU/L 05/03/23 05/03/23 05/03/23 Range/Units 11:21 16:30 21:22 POC Glucometer 110 H 104 92 (74 to 106) mg/dL Free T4 (0.78-2.19) ng/dL TSH 3rd Generation (0.47-4.68) mIU/L Radiology Exams: Radiology Procedures Category Date Time Status CHEST WITH CONTRAST [CT] Stat Exams 05/02/23 05:22 Completed ECHO W/2D AND DOPPLER [US] Routine Exams 05/03/23 08:00 Taken VENOUS BILATERAL EXTREMITY [US] Routine Exams 05/03/23 09:00 Completed Assessment/Plan (1) Pulmonary embolism Current Visit: Yes Status: Acute Assessment & Plan: -D-Dimer 0.59 - CT chest with contrast 05/02/23 IMPRESSION: Non-opacification of subsegmental branches of the lower lobe of the left pulmonary artery is suggestive of left distal PE. Interstitial lung markings. Parenchymal lung processes such as infection or chronic lung disease may be present. Suggest follow-up chest CT in 3 months. - trop X3 negative - started therapeutic Lovenox - Echo, venous duplex- tomorrow - Consider cards consult - Tele - O2 95% on 4LNC 05/03: -Start eliquis, 10mg bid dosing x 7 days 5mg bid dosing thereafter, rx sent to pharm to check pricing Code(s): I26.99 - OTHER PULMONARY EMBOLISM WITHOUT ACUTE COR PULMONALE (2) Pneumonia Current Visit: Yes Status: Acute Assessment & Plan: - Zosyn, advair, proventil, solumedrol - On 4LNC- 95% - BL 2lNC - Sputum culture pending - Mucinex BID 05/03: -Add solumedrol -Continue zosyn 05/04: -improving, now at baseline oxygen, most likely will discharge in the morning Code(s): J18.9 - PNEUMONIA, UNSPECIFIED ORGANISM (3) Chest tightness Current Visit: Yes Status: Acute Assessment & Plan: - Most likely r/t PE and pneumonia - Trop x3 negative - Echo in AM - Consider cardiology consult 05/03: -Echo pending -Denies CP today Code(s): R07.89 - OTHER CHEST PAIN (4) COPD with acute exacerbation Current Visit: Yes Status: Acute Assessment & Plan: - Zosyn, advair, proventil, solumedrol - On 4LNC- 95% - BL 2lNC Code(s): J44.1 - CHRONIC OBSTRUCTIVE PULMONARY DISEASE W (ACUTE) EXACERBATION (5) HTN (hypertension) Current Visit: Yes Status: Acute Assessment & Plan: - Continue Lisinopril - BP stable Code(s): I10 - ESSENTIAL (PRIMARY) HYPERTENSION (6) Type II diabetes mellitus, well controlled Current Visit: Yes Status: Acute Assessment & Plan: - A1C 4.88 - Continue Metformin and Januvia - accuchecks AC/HS - low dose s/s added as pt is getting steriods and may increase glucose - ADA diet Code(s): E11.9 - TYPE 2 DIABETES MELLITUS WITHOUT COMPLICATIONS (7) Hypothyroidism Current Visit: Yes Status: Acute Assessment & Plan: - Continue synthroid - TSH in AM 05/03: -TSH low, will decrease dose to 88mcg Code(s): E03.9 - HYPOTHYROIDISM, UNSPECIFIED (8) Hyponatremia Current Visit: Yes Status: Acute Assessment & Plan: - Na+ 133 -IV fluids gave in ER - trend 05/03: -improving Code(s): E87.1 - HYPO-OSMOLALITY AND HYPONATREMIA (9) Hyperlipidemia Current Visit: Yes Status: Acute Assessment & Plan: - Continue statin VTE: Eliquis PPI: protonix Next of Kin: Juan Carlos Gomes ( spouse) [phone], D/C plan: 2-3 days Code status: Full Code(s): I26.99 - OTHER PULMONARY EMBOLISM WITHOUT ACUTE COR PULMONALE (2) COPD with acute exacerbation Current Visit: Yes Status: Acute Code(s): J44.1 - CHRONIC OBSTRUCTIVE PULMONARY DISEASE W (ACUTE) EXACERBATION (3) Chest tightness Current Visit: Yes Status: Acute Code(s): R07.89 - OTHER CHEST PAIN (4) HTN (hypertension) Current Visit: Yes Status: Acute Code(s): I10 - ESSENTIAL (PRIMARY) HYPERTENSION (5) Hyperlipidemia Current Visit: Yes Status: Acute Code(s): E78.5 - HYPERLIPIDEMIA, UNSPECIFIED (6) Hyponatremia Current Visit: Yes Status: Acute Code(s): E87.1 - HYPO-OSMOLALITY AND HYPONATREMIA (7) Hypothyroidism Current Visit: Yes Status: Acute Code(s): E03.9 - HYPOTHYROIDISM, UNSPECIFIED (8) Pneumonia Current Visit: Yes Status: Acute Code(s): J18.9 - PNEUMONIA, UNSPECIFIED OR GANISM (9) Type II diabetes mellitus, well controlled Current Visit: Yes Status: Acute Code(s): E11.9 - TYPE 2 DIABETES MELLITUS WITHOUT COMPLICATIONS
[2023-05-04 05:44] LABS: BASOPHIL % 0.1 % (0.0-0.4); Basophil (Absolute #) 0.01 x10^3/uL (0-0.4); Eosinophil (Absolute #) 0 x10^3/uL (0-0.5); Hematocrit 32.4 % (35-47); Hemoglobin 10.2 g/dL (12.0-16.0); IMMATURE GRAN # 0.16 x10^3u/L (0.00-0.03); IMMATURE GRAN % 1.6 % (0.00-0.4); Lymphocyte (Absolute #) 0.99 x10^3/uL (1.0-4.6); Lymphocytes % 10.2 % (24.0-44.0); Mean Cell Volume 96.1 fL (78-100); Mean Corpuscular Hemoglobin 30.3 pg (26-32); Mean Corpuscular Hgb Concent. 31.5 g/dL (32-36); Mean Platelet Volume 8.2 fL (7.5-11.0); Monocyte (Absolute #) 0.36 x10^3/uL (0.0-1.3); Monocytes % 3.7 % (0.0-12.0); Neutrophil % 84.4 % (36.0-66.0); Platelet Count 242 x10^3/uL (150-450); Red Blood Count 3.37 x10^6/uL (4.1-5.4); Red Cell Distribution Width 12.7 % (11.5-14.0); White Blood Count 9.7 x10^3/uL (4.0-10.5)
[2023-05-04] MEDS: solu-MEDROL 40 MG, Sterile H2O 10 ml 1 ML IV SCH ×6 (06:03→21:18)
[2023-05-04 06:04] LABS: ALBUMIN 3.1 g/dL (3.5-5.0); ANION GAP 13.6 MEQ/L (5-15); BILIRUBIN,TOTAL 0.3 mg/dL (0.2-1.3); Creatinine 1 0.71 mg/dL (0.52-1.04); EST GLOMERULAR FILTRATION RATE 91.4 ML/MIN; Potassium 4.4 mmol/L (3.5-5.1); Total Protein 5.5 g/dL (6.3-8.2)
[2023-05-04] MEDS: PROVENTIL 2.5 MG/3 ML NEB IH SCH ×4 (06:50→18:23)
[2023-05-04] MEDS: Advair Hfa 115/21 Common canister IH SCH ×2 (06:54→18:33)
[2023-05-04] MEDS: Zestril 10 MG PO SCH (09:08)
[2023-05-04] MEDS: Mucinex 600MG ER Tabs PO SCH ×2 (09:08→21:17)
[2023-05-04] MEDS: Protonix 40MG Tablet PO SCH (09:08)
[2023-05-04] MEDS: ELIQUIS 2.5 MG TABLET PO SCH ×2 (09:09→21:18)
[2023-05-04] MEDS: SYNTHROID 88 MCG PO SCH (09:09)
[2023-05-04] MEDS: Januvia 50 MG PO SCH (21:17)
[2023-05-04] MEDS: ZOCOR 20MG PO SCH (21:17)
[2023-05-04] MEDS: Glucophage 500 MG PO SCH (21:18)
[2023-05-04] MEDS: Neurontin PO SCH (21:21)
[2023-05-05] MEDS: PIPERACILLIN/TAZOBACTAM 4.5 GM in Sodium Chloride 100ML MINI-BAG PLUS 100 ML IV SCH ×2 (05:00→13:43)
[2023-05-05 05:09] LABS: Absolute Neutrophil Ct (ANC) 9.92 x10^3/uL (1.4-6.9); BASOPHIL % 0.1 % (0.0-0.4); Basophil (Absolute #) 0.01 x10^3/uL (0-0.4); Eosinophil (Absolute #) 0 x10^3/uL (0-0.5); Hematocrit 33.3 % (35-47); Hemoglobin 10.6 g/dL (12.0-16.0); IMMATURE GRAN % 1.7 % (0.00-0.4); Lymphocytes % 9.3 % (24.0-44.0); Mean Cell Volume 94.9 fL (78-100); Mean Corpuscular Hemoglobin 30.2 pg (26-32); Mean Corpuscular Hgb Concent. 31.8 g/dL (32-36); Mean Platelet Volume 8.3 fL (7.5-11.0); Monocyte (Absolute #) 0.65 x10^3/uL (0.0-1.3); Monocytes % 5.5 % (0.0-12.0); Neutrophil % 83.4 % (36.0-66.0); Platelet Count 255 x10^3/uL (150-450); Red Blood Count 3.51 x10^6/uL (4.1-5.4); Red Cell Distribution Width 12.6 % (11.5-14.0); White Blood Count 11.9 x10^3/uL (4.0-10.5)
[2023-05-05 05:29] LABS: ALBUMIN 3.2 g/dL (3.5-5.0); ANION GAP 8.9 MEQ/L (5-15); BILIRUBIN,TOTAL 0.2 mg/dL (0.2-1.3); Calcium 8.3 mg/dL (8.4-10.2); Creatinine 1 0.79 mg/dL (0.52-1.04); EST GLOMERULAR FILTRATION RATE 80.4 ML/MIN; Potassium 4.5 mmol/L (3.5-5.1); Total Protein 5.6 g/dL (6.3-8.2)
[2023-05-05] MEDS: solu-MEDROL 40 MG, Sterile H2O 10 ml 1 ML IV SCH ×6 (05:34→22:04)
--- NOTE | 2023-05-05 05:57 | PCM.DS ---
Discharge Summary Date of Admission: 05/02/23 08:58 Date of Discharge: 05/05/23 Admitting Physician: NADINE GONSALEZ MD Primary Care Provider: ARTUR MOELLER Allergies Allergies No Known Drug Allergies Allergy (Verified 05/02/23 03:16) Hospital Summary - Hospital Course Hospital Course: Ms. 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 CTA is positive for left- sided pulmonary embolism with interstitial findings suggestive of infectious process. Patient started on Rocephin/zosyn, steroids, and bronchodilators. Lovenox was initiated for her PE and converted to eliquis PE dosing. Symptoms are improved but still coughing up yellow sputum. She is now at her baseline oxygen. Discharge Note New Diagnosis: PE/Pnuemonia New Medications: Cefpodoxime/Eliquis/pred Follow Up: PCP/PULM Latest Assessment & Plan (1) Pulmonary embolism Current Visit: Yes Status: Acute Assessment & Plan: -D-Dimer 0.59 - CT chest with contrast 05/02/23 IMPRESSION: Non-opacification of subsegmental branches of the lower lobe of the left pulmonary artery is suggestive of left distal PE. Interstitial lung markings. Parenchymal lung processes such as infection or chronic lung disease may be present. Suggest follow-up chest CT in 3 months. - trop X3 negative - started therapeutic Lovenox - Echo, venous duplex- tomorrow - Consider cards consult - Tele - O2 95% on 4LNC 05/03: -Start eliquis, 10mg bid dosing x 7 days 5mg bid dosing thereafter, rx sent to pharm to check pricing 05/05: -Doppler negative for DVT in bLE -ECHO pending Code(s): I26.99 - OTHER PULMONARY EMBOLISM WITHOUT ACUTE COR PULMONALE (2) Pneumonia Current Visit: Yes Status: Acute Assessment & Plan: - Zosyn, advair, proventil, solumedrol - On 4LNC- 95% - BL 2lNC - Sputum culture pending - Mucinex BID 05/03: -Add solumedrol -Continue zosyn 05/04: -improving, now at baseline oxygen, most likely will discharge in the morning Code(s): J18.9 - PNEUMONIA, UNSPECIFIED ORGANISM (3) Chest tightness Current Visit: Yes Status: Acute Assessment & Plan: - Most likely r/t PE and pneumonia - Trop x3 negative - Echo in AM - Consider cardiology consult 05/03: -Echo pending -Denies CP today Code(s): R07.89 - OTHER CHEST PAIN (4) COPD with acute exacerbation Current Visit: Yes Status: Acute Assessment & Plan: - Zosyn, advair, proventil, solumedrol - On 4LNC- 95% - BL 2lNC Code(s): J44.1 - CHRONIC OBSTRUCTIVE PULMONARY DISEASE W (ACUTE) EXACERBATION (5) HTN (hypertension) Current Visit: Yes Status: Acute Assessment & Plan: - Continue Lisinopril - BP stable Code(s): I10 - ESSENTIAL (PRIMARY) HYPERTENSION (6) Type II diabetes mellitus, well controlled Current Visit: Yes Status: Acute Assessment & Plan: - A1C 4.88 - Continue Metformin and Januvia - accuchecks AC/HS - low dose s/s added as pt is getting steriods and may increase glucose - ADA diet Code(s): E11.9 - TYPE 2 DIABETES MELLITUS WITHOUT COMPLICATIONS (7) Hypothyroidism Current Visit: Yes Status: Acute Assessment & Plan: - Continue synthroid - TSH in AM 05/03: -TSH low, will decrease dose to 88mcg Code(s): E03.9 - HYPOTHYROIDISM, UNSPECIFIED (8) Hyponatremia Current Visit: Yes Status: Acute Assessment & Plan: - Na+ 133 -IV fluids gave in ER - trend 05/03: -improving Code(s): E87.1 - HYPO-OSMOLALITY AND HYPONATREMIA (9) Hyperlipidemia Current Visit: Yes Status: Acute Assessment & Plan: - Continue statin I spent 35 minutes [id number] with the patient on the day of discharge performing discharge exam, discussing hospital stay and discharge instructions with patient and caregivers, preparation of discharge records, prescriptions & referral forms and addressing any questions/concerns the patient had as documented above. - Vitals & Intake/Output Vital Signs: Vital Signs Temperature 97.5 F 05/05/23 03:56 Pulse Rate 73 05/05/23 03:56 Respiratory Rate 16 05/05/23 03:56 Blood Pressure 132/62 05/05/23 03:56 O2 Sat by Pulse Oximetry 98 05/05/23 03:56 Intake & Output: Intake & Output 05/02/23 05/03/23 05/04/23 05/05/23 11:59 11:59 11:59 11:59 Intake Total 9913 151 1994 Balance 8673 481 1068 Weight 68.5 kg 68.5 kg - Lab Result Diagrams: 05/05/23 04:58 05/05/23 04:58 Lab Results-Last 24 Hrs: Lab Results-Last 24 Hours 05/04/23 05/04/23 05/04/23 Range/Units 04:17 07:35 11:28 WBC (4.0-10.5) x10^3/uL RBC (4.1-5.4) x10^6/uL Hgb (12.0-16.0) g/dL Hct (35-47) % MCV (78-100) fL MCH (26-32) pg MCHC (32-36) g/dL RDW (11.5-14.0) % Plt Count (150-450) x10^3/uL MPV (7.5-11.0) fL Gran % (36.0-66.0) % Immature Gran % (Auto) (0.00-0.4) % Nucleat RBC Rel Count (0.00-0.1) % Eos # (Auto) (0-0.5) x10^3/uL Immature Gran # (Auto) (0.00-0.03) x10^3u/L Absolute Lymphs (auto) (1.0-4.6) x10^3/uL Absolute Monos (auto) (0.0-1.3) x10^3/uL Absolute Nucleated RBC (0.00-0.01) x10^3u/L Lymphocytes % (24.0-44.0) % Monocytes % (0.0-12.0) % Eosinophils % (0.00-5.0) % Basophils % (0.0-0.4) % Absolute Granulocytes (1.4-6.9) x10^3/uL Basophils # (0-0.4) x10^3/uL Sodium 132 L (137-145) mmol/L Potassium 4.4 (3.5-5.1) mmol/L Chloride 95 L (98-107) mmol/L Carbon Dioxide 28 (22-30) mmol/L Anion Gap 13.6 (5-15) MEQ/L BUN 21 H (7-17) mg/dL Creatinine 0.71 (0.52-1.04) mg/dL Estimated GFR 91.4 ML/MIN Glucose 104 (74-106) mg/dL POC Glucometer 104 101 (74 to 106) mg/dL Calcium 8.0 L (8.4-10.2) mg/dL Total Bilirubin 0.30 (0.2-1.3) mg/dL AST 20 (14-36) U/L ALT 14 (0-35) U/L Alkaline Phosphatase 55 (38-126) U/L Serum Total Protein 5.5 L (6.3-8.2) g/dL Albumin 3.1 L (3.5-5.0) g/dL 05/04/23 05/04/23 05/05/23 Range/Units 16:14 20:33 04:58 WBC 11.9 H (4.0-10.5) x10^3/uL RBC 3.51 L (4.1-5.4) x10^6/uL Hgb 10.6 L (12.0-16.0) g/dL Hct 33.3 L (35-47) % MCV 94.9 (78-100) fL MCH 30.2 (26-32) pg MCHC 31.8 L (32-36) g/dL RDW 12.6 (11.5-14.0) % Plt Count 255 (150-450) x10^3/uL MPV 8.3 (7.5-11.0) fL Gran % 83.4 H (36.0-66.0) % Immature Gran % (Auto) 1.7 H (0.00-0.4) % Nucleat RBC Rel Count 0.0 (0.00-0.1) % Eos # (Auto) 0 (0-0.5) x10^3/uL Immature Gran # (Auto) 0.20 H (0.00-0.03) x10^3u/L Absolute Lymphs (auto) 1.10 (1.0-4.6) x10^3/uL Absolute Monos (auto) 0.65 (0.0-1.3) x10^3/uL Absolute Nucleated RBC 0.00 (0.00-0.01) x10^3u/L Lymphocytes % 9.3 L (24.0-44.0) % Monocytes % 5.5 (0.0-12.0) % Eosinophils % 0.0 (0.00-5.0) % Basophils % 0.1 (0.0-0.4) % Absolute Granulocytes 9.92 H (1.4-6.9) x10^3/uL Basophils # 0.01 (0-0.4) x10^3/uL Sodium (137-145) mmol/L Potassium (3.5-5.1) mmol/L Chloride (98-107) mmol/L Carbon Dioxide (22-30) mmol/L Anion Gap (5-15) MEQ/L BUN (7-17) mg/dL Creatinine (0.52-1.04) mg/dL Estimated GFR ML/MIN Glucose (74-106) mg/dL POC Glucometer 119 H 104 (74 to 106) mg/dL Calcium (8.4-10.2) mg/dL Total Bilirubin (0.2-1.3) mg/dL AST (14-36) U/L ALT (0-35) U/L Alkaline Phosphatase (38-126) U/L Serum Total Protein (6.3-8.2) g/dL Albumin (3.5-5.0) g/dL 05/05/23 Range/Units 04:58 WBC (4.0-10.5) x10^3/uL RBC (4.1-5.4) x10^6/uL Hgb (12.0-16.0) g/dL Hct (35-47) % MCV (78-100) fL MCH (26-32) pg MCHC (32-36) g/dL RDW (11.5-14.0) % Plt Count (150-450) x10^3/uL MPV (7.5-11.0) fL Gran % (36.0-66.0) % Immature Gran % (Auto) (0.00-0.4) % Nucleat RBC Rel Count (0.00-0.1) % Eos # (Auto) (0-0.5) x10^3/uL Immature Gran # (Auto) (0.00-0.03) x10^3u/L Absolute Lymphs (auto) (1.0-4.6) x10^3/uL Absolute Monos (auto) (0.0-1.3) x10^3/uL Absolute Nucleated RBC (0.00-0.01) x10^3u/L Lymphocytes % (24.0-44.0) % Monocytes % (0.0-12.0) % Eosinophils % (0.00-5.0) % Basophils % (0.0-0.4) % Absolute Granulocytes (1.4-6.9) x10^3/uL Basophils # (0-0.4) x10^3/uL Sodium 131 L (137-145) mmol/L Potassium 4.5 (3.5-5.1) mmol/L Chloride 98 (98-107) mmol/L Carbon Dioxide 29 (22-30) mmol/L Anion Gap 8.9 (5-15) MEQ/L BUN 19 H (7-17) mg/dL Creatinine 0.79 (0.52-1.04) mg/dL Estimated GFR 80.4 ML/MIN Glucose 103 (74-106) mg/dL POC Glucometer (74 to 106) mg/dL Calcium 8.3 L (8.4-10.2) mg/dL Total Bilirubin 0.20 (0.2-1.3) mg/dL AST 20 (14-36) U/L ALT 13 (0-35) U/L Alkaline Phosphatase 54 (38-126) U/L Serum Total Protein 5.6 L (6.3-8.2) g/dL Albumin 3.2 L (3.5-5.0) g/dL Micro Results-Entire Visit: Microbiology 05/02/23 10:19 Gram Stain - Final Sputum - Expectorant Sputum Culture - Preliminary GRAM NEGATIVE ID AND SENSITIVITY PENDING Accuchecks Date 05/04/23 Date 05/04/23 Date 05/04/23 Time 21:00 Time 16:33 Time 12:40 - Radiology Exams Ordered Rad Exams-Entire Visit: Radiology Procedures Category Date Time Status ECHO W/2D AND DOPPLER [US] Routine Exams 05/03/23 08:00 Taken VENOUS BILATERAL EXTREMITY [US] Routine Exams 05/03/23 09:00 Completed - Procedures and Test Procedures and Tests throughout Hospitalization: Therapy Orders & Screens 05/02/23 09:02 Oxygen Nasal Cannula 4 lpm Comment: Respiratory Therapy Consult ONCE Comment: Reason For Exam: 05/03/23 07:00 Respiratory Therapy Assessment DAILY Comment: Final Diagnosis/Problem List - Final Discharge Diagnosis/Problem (1) Pulmonary embolism Current Visit: Yes Status: Acute Code(s): I26.99 - OTHER PULMONARY EMBOLISM WITHOUT ACUTE COR PULMONALE (2) COPD with acute exacerbation Current Visit: Yes Status: Acute Code(s): J44.1 - CHRONIC OBSTRUCTIVE PULM ONARY DISEASE W (ACUTE) EXACERBATION (3) Chest tightness Current Visit: Yes Status: Acute Code(s): R07.89 - OTHER CHEST PAIN (4) HTN (hypertension) Current Visit: Yes Status: Acute Code(s): I10 - ESSENTIAL (PRIMARY) HYPERTENSION (5) Hyperlipidemia Current Visit: Yes Status: Acute Code(s): E78.5 - HYPERLIPIDEMIA, UNSPECIFIED (6) Hyponatremia Current Visit: Yes Status: Acute Code(s): E87.1 - HYPO-OSMOLALITY AND HYP ONATREMIA (7) Hypothyroidism Current Visit: Yes Status: Acute Code(s): E03.9 - HYPOTHYROIDISM, UNSPECIFI ED (8) Pneumonia Current Visit: Yes Status: Acute Code(s): J18.9 - PNEUMONIA, UNSPECIFIED ORGANISM (9) Type II diabetes mellitus, well controlled Current Visit: Yes Status: Acute Code(s): E11.9 - TYPE 2 DIABETES MELLITUS WITHOUT COMPLICATIONS - Discharge Disposition: Home, Self-Care Condition: Good Prescriptions: New Apixaban [Eliquis] 5 mg PO UD 30 Days #1 packet No Action Levothyroxine Sodium 100 Mcg [Synthroid 100 Mcg] 100 mcg PO DAILY Lisinopril 10 mg [Zestril 10 MG] 10 mg PO DAILY PANTOPRAZOLE 40 mg Tablet [Protonix 40MG Tablet] 40 mg PO QAM Simvastatin 80 mg PO HS Sitagliptin Phos/Metformin HCl [Janumet 50-1,000 mg Tablet] 1,000 mg PO HS Gabapentin 100 mg PO HS Fluticasone/Umeclidin/Vilanter [Trelegy Ellipta 100-62.5-25] 1 each IH DAILY Albuterol 2.5 mg/3 ml Neb [Proventil 2.5 mg/3 ml Neb] 2.5 mg IH QID Instructions: Pneumonia, Adult (DC), Pulmonary Embolism (Blood Clot in the Lungs) (DC), Apixaban Follow up with: ARTUR MOELLER MD [Primary Care Provider] - 05/12/23 1:30 pm Forms: Discharge Instructions
[2023-05-05] MEDS: PROVENTIL 2.5 MG/3 ML NEB IH SCH ×4 (07:13→19:35)
[2023-05-05] MEDS: Advair Hfa 115/21 Common canister IH SCH ×2 (07:15→19:37)
[2023-05-05] MEDS: Sodium Chloride 0.9% 1000 ML 1,000 ML IV SCH ×2 (08:07→17:42)
[2023-05-05] MEDS: Protonix 40MG Tablet PO SCH (10:28)
[2023-05-05 10:29] LABS: ANION GAP 9.3 MEQ/L (5-15); Calcium 8.4 mg/dL (8.4-10.2); Creatinine 1 0.84 mg/dL (0.52-1.04); EST GLOMERULAR FILTRATION RATE 74.7 ML/MIN; Potassium 4.2 mmol/L (3.5-5.1)
[2023-05-05] MEDS: SYNTHROID 88 MCG PO SCH (10:29)
[2023-05-05] MEDS: Mucinex 600MG ER Tabs PO SCH ×2 (10:29→22:05)
[2023-05-05] MEDS: Zestril 10 MG PO SCH (10:29)
[2023-05-05] MEDS: ELIQUIS 2.5 MG TABLET PO SCH ×2 (10:30→22:05)
[2023-05-05] MEDS: Levofloxacin 500 MG Tablet PO SCH (14:18)
[2023-05-05] MEDS: Levofloxacin 250MG Tablet PO SCH (14:19)
[2023-05-05] MEDS ORDERED: Zofran 4 MG/2 ML VIAL IV PRN (16:35)
--- NOTE | 2023-05-05 16:40 | PCM.NOTE ---
Date and Time: 05/05/231627 Subjective Assessment: Ms. 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 CTA is positive for left- sided pulmonary embolism with interstitial findings suggestive of infectious process. Patient started on Rocephin/zosyn as well as lovenox. Will convert to eliquis after 24 hours. ECHO, venous duplex pending. 05/03/23: Met with patient bedside. States she is feeling better. Continues to endorse increased shortness of breath requiring 4l of oxygen, baseline at 3L and productive cough with yellow sputum. Wheezing is noted on auscultation. Will add solu-medrol today. Discussed TSH level being low, will decrease synthroid to 88mcg from 100mcg. Advised follow up with PCP regarding this change for re- evaluation 05/04: Met with patient bedside. Still endorsing shortness of breath, cough, with wheezing but states she feels improved. On baseline oxygen of 3L. 05/05: Patient endorsing increased shortness of breath today with ambulation with spo2 dropping to 87%. At baseline oxygen of 3L. Cough has improved. Discussed sputum culture growing pseudomonas putida and klebsilla pneumonia. Will continue Zosyn, add levaquin. Consider discharge tomorrow if she is feeling better. - Review of Systems Constitutional: Fatigue, Weakness Eyes: No Symptoms Ears, Nose, & Throat: No Symptoms Respiratory: Cough, Short Of Breath Cardiac: No Symptoms Abdominal/Gastrointestinal: No Symptoms Genitourinary Symptoms: No Symptoms Musculoskeletal: No Symptoms Skin: No Symptoms Neurological: No Symptoms Psychological: No Symptoms Endocrine: No Symptoms Objective Exam General Appearance: no apparent distress Neurologic Exam: alert, oriented x 3, cooperative Skin Exam: normal color Eye Exam: PERRL Ears, Nose, Throat Exam: normal ENT inspection Neck Exam: normal inspection Respiratory Exam: diminished breath sounds Cardiovascular Exam: regular rate/rhythm, normal heart sounds Gastrointestinal/Abdomen Exam: soft, normal bowel sounds Extremity Exam: normal inspection Back Exam: normal inspection Pelvic Exam: deferred OBJECTIVE DATA Vital Signs: Vital Signs - 24 hr Temp Pulse Resp BP Pulse Ox 05/05/23 15:23 63 16 99 05/05/23 11:48 97.6 F 67 16 131/61 93 L 05/05/23 11:20 67 18 96 05/05/23 07:26 97.0 F 58 L 18 142/64 98 05/05/23 07:17 60 16 98 05/05/23 03:56 97.5 F 73 16 132/62 98 05/04/23 23:59 98 F 72 16 121/61 99 05/04/23 20:35 98.3 F 67 16 120/71 99 05/04/23 19:00 98.0 F 73 18 121/58 96 05/04/23 18:23 74 18 98 Pain Assessment - Last Documented Pain Intensity 0 Pain Scale Used 0-10 Pain Scale Intake and Output: Intake & Output 05/03/23 05/04/23 05/05/23 05/06/23 11:59 11:59 11:59 11:59 Intake Total 1721 852 8776 240 Balance 7754 189 6026 240 Weight 68.5 kg Lab Results: Lab Results-Last 24 Hours 05/04/23 05/05/23 05/05/23 Range/Units 20:33 04:58 04:58 WBC 11.9 H (4.0-10.5) x10^3/uL RBC 3.51 L (4.1-5.4) x10^6/uL Hgb 10.6 L (12.0-16.0) g/dL Hct 33.3 L (35-47) % MCV 94.9 (78-100) fL MCH 30.2 (26-32) pg MCHC 31.8 L (32-36) g/dL RDW 12.6 (11.5-14.0) % Plt Count 255 (150-450) x10^3/uL MPV 8.3 (7.5-11.0) fL Gran % 83.4 H (36.0-66.0) % Immature Gran % (Auto) 1.7 H (0.00-0.4) % Nucleat RBC Rel Count 0.0 (0.00-0.1) % Eos # (Auto) 0 (0-0.5) x10^3/uL Immature Gran # (Auto) 0.20 H (0.00-0.03) x10^3u/L Absolute Lymphs (auto) 1.10 (1.0-4.6) x10^3/uL Absolute Monos (auto) 0.65 (0.0-1.3) x10^3/uL Absolute Nucleated RBC 0.00 (0.00-0.01) x10^3u/L Lymphocytes % 9.3 L (24.0-44.0) % Monocytes % 5.5 (0.0-12.0) % Eosinophils % 0.0 (0.00-5.0) % Basophils % 0.1 (0.0-0.4) % Absolute Granulocytes 9.92 H (1.4-6.9) x10^3/uL Basophils # 0.01 (0-0.4) x10^3/uL Sodium 131 L (137-145) mmol/L Potassium 4.5 (3.5-5.1) mmol/L Chloride 98 (98-107) mmol/L Carbon Dioxide 29 (22-30) mmol/L Anion Gap 8.9 (5-15) MEQ/L BUN 19 H (7-17) mg/dL Creatinine 0.79 (0.52-1.04) mg/dL Estimated GFR 80.4 ML/MIN Glucose 103 (74-106) mg/dL POC Glucometer 104 (74 to 106) mg/dL Calcium 8.3 L (8.4-10.2) mg/dL Total Bilirubin 0.20 (0.2-1.3) mg/dL AST 20 (14-36) U/L ALT 13 (0-35) U/L Alkaline Phosphatase 54 (38-126) U/L Serum Total Protein 5.6 L (6.3-8.2) g/dL Albumin 3.2 L (3.5-5.0) g/dL 05/05/23 05/05/23 05/05/23 Range/Units 07:07 10:10 11:40 WBC (4.0-10.5) x10^3/uL RBC (4.1-5.4) x10^6/uL Hgb (12.0-16.0) g/dL Hct (35-47) % MCV (78-100) fL MCH (26-32) pg MCHC (32-36) g/dL RDW (11.5-14.0) % Plt Count (150-450) x10^3/uL MPV (7.5-11.0) fL Gran % (36.0-66.0) % Immature Gran % (Auto) (0.00-0.4) % Nucleat RBC Rel Count (0.00-0.1) % Eos # (Auto) (0-0.5) x10^3/uL Immature Gran # (Auto) (0.00-0.03) x10^3u/L Absolute Lymphs (auto) (1.0-4.6) x10^3/uL Absolute Monos (auto) (0.0-1.3) x10^3/uL Absolute Nucleated RBC (0.00-0.01) x10^3u/L Lymphocytes % (24.0-44.0) % Monocytes % (0.0-12.0) % Eosinophils % (0.00-5.0) % Basophils % (0.0-0.4) % Absolute Granulocytes (1.4-6.9) x10^3/uL Basophils # (0-0.4) x10^3/uL Sodium 132 L (137-145) mmol/L Potassium 4.2 (3.5-5.1) mmol/L Chloride 96 L (98-107) mmol/L Carbon Dioxide 30 (22-30) mmol/L Anion Gap 9.3 (5-15) MEQ/L BUN 20 H (7-17) mg/dL Creatinine 0.84 (0.52-1.04) mg/dL Estimated GFR 74.7 ML/MIN Glucose 102 (74-106) mg/dL POC Glucometer 93 96 (74 to 106) mg/dL Calcium 8.4 (8.4-10.2) mg/dL Total Bilirubin (0.2-1.3) mg/dL AST (14-36) U/L ALT (0-35) U/L Alkaline Phosphatase (38-126) U/L Serum Total Protein (6.3-8.2) g/dL Albumin (3.5-5.0) g/dL 05/05/23 Range/Units 15:51 WBC (4.0-10.5) x10^3/uL RBC (4.1-5.4) x10^6/uL Hgb (12.0-16.0) g/dL Hct (35-47) % MCV (78-100) fL MCH (26-32) pg MCHC (32-36) g/dL RDW (11.5-14.0) % Plt Count (150-450) x10^3/uL MPV (7.5-11.0) fL Gran % (36.0-66.0) % Immature Gran % (Auto) (0.00-0.4) % Nucleat RBC Rel Count (0.00-0.1) % Eos # (Auto) (0-0.5) x10^3/uL Immature Gran # (Auto) (0.00-0.03) x10^3u/L Absolute Lymphs (auto) (1.0-4.6) x10^3/uL Absolute Monos (auto) (0.0-1.3) x10^3/uL Absolute Nucleated RBC (0.00-0.01) x10^3u/L Lymphocytes % (24.0-44.0) % Monocytes % (0.0-12.0) % Eosinophils % (0.00-5.0) % Basophils % (0.0-0.4) % Absolute Granulocytes (1.4-6.9) x10^3/uL Basophils # (0-0.4) x10^3/uL Sodium (137-145) mmol/L Potassium (3.5-5.1) mmol/L Chloride (98-107) mmol/L Carbon Dioxide (22-30) mmol/L Anion Gap (5-15) MEQ/L BUN (7-17) mg/dL Creatinine (0.52-1.04) mg/dL Estimated GFR ML/MIN Glucose (74-106) mg/dL POC Glucometer 111 H (74 to 106) mg/dL Calcium (8.4-10.2) mg/dL Total Bilirubin (0.2-1.3) mg/dL AST (14-36) U/L ALT (0-35) U/L Alkaline Phosphatase (38-126) U/L Serum Total Protein (6.3-8.2) g/dL Albumin (3.5-5.0) g/dL Multi-Disciplinary Progress Notes: Multi-Disciplinary Progress Notes 05/05/23 14:08 Case Management Note by Judi White S/W [facility]- THEY HAVE THE ELIQUIS STARTED [facility] READY FOR [facility]- IT IS $0 COPAY Initialized on 05/05/23 14:08 - END OF NOTE Assessment/Plan (1) Pulmonary embolism Current Visit: Yes Status: Acute Assessment & Plan: -D-Dimer 0.59 - CT chest with contrast 05/02/23 IMPRESSION: Non-opacification of subsegmental branches of the lower lobe of the left pulmonary artery is suggestive of left distal PE. Interstitial lung markings. Parenchymal lung processes such as infection or chronic lung disease may be present. Suggest follow-up chest CT in 3 months. - trop X3 negative - started therapeutic Lovenox - Echo, venous duplex- tomorrow - Consider cards consult - Tele - O2 95% on 4LNC 05/03: -Start eliquis, 10mg bid dosing x 7 days 5mg bid dosing thereafter, rx sent to pharm to check pricing Code(s): I26.99 - OTHER PULMONARY EMBOLISM WITHOUT ACUTE COR PULMONALE (2) Pneumonia Current Visit: Yes Status: Acute Assessment & Plan: - Zosyn, advair, proventil, solumedrol - On 4LNC- 95% - BL 2lNC - Sputum culture pending - Mucinex BID 05/03: -Add solumedrol -Continue zosyn 05/04: -improving, now at baseline oxygen, most likely will discharge in the morning 04/25: -sputum culture showing klebsiella and pseudomonas putida will add levaquin to zosyn Code(s): J18.9 - PNEUMONIA, UNSPECIFIED ORGANISM (3) Chest tightness Current Visit: Yes Status: Acute Assessment & Plan: - Most likely r/t PE and pneumonia - Trop x3 negative - Echo in AM - Consider cardiology consult 05/03: -Echo pending -Denies CP today Code(s): R07.89 - OTHER CHEST PAIN (4) COPD with acute exacerbation Current Visit: Yes Status: Acute Assessment & Plan: - Zosyn, advair, proventil, solumedrol - On 4LNC- 95% - BL 2lNC 05/05: -On baseline 3L Code(s): J44.1 - CHRONIC OBSTRUCTIVE PULMONARY DISEASE W (ACUTE) EXACERBATION (5) HTN (hypertension) Current Visit: Yes Status: Acute Assessment & Plan: - Continue Lisinopril - BP stable Code(s): I10 - ESSENTIAL (PRIMARY) HYPERTENSION (6) Type II diabetes mellitus, well controlled Current Visit: Yes Status: Acute Assessment & Plan: - A1C 4.88 - Continue Metformin and Januvia - accuchecks AC/HS - low dose s/s added as pt is getting steriods and may increase glucose - ADA diet Code(s): E11.9 - TYPE 2 DIABETES MELLITUS WITHOUT COMPLICATIONS (7) Hypothyroidism Current Visit: Yes Status: Acute Assessment & Plan: - Continue synthroid - TSH in AM 05/03: -TSH low, will decrease dose to 88mcg Code(s): E03.9 - HYPOTHYROIDISM, UNSPECIFIED (8) Hyponatremia Current Visit: Yes Status: Acute Assessment & Plan: - Na+ 133 -IV fluids gave in ER - trend 05/03: -improving 05/04: -will continue to monitor Code(s): E87.1 - HYPO-OSMOLALITY AND HYPONATREMIA (9) Hyperlipidemia Current Visit: Yes Status: Acute Assessment & Plan: - Continue statin #Diarrhea -will collect stool studies VTE: Eliquis PPI: protonix Next of Kin: Juan Carlos Gomes ( spouse) [phone], D/C plan: 2-3 days Code status: Full Code(s): I26.99 - OTHER PULMONARY EMBOLISM WITHOUT ACUTE COR PULMONALE (2) COPD with acute exacerbation Current Visit: Yes Status: Acute Code(s): J44.1 - CHRONIC OBSTRUCTIVE PULMONARY DISEASE W (ACUTE) EXACERBATION (3) Chest tightness Current Visit: Yes Status: Acute Code(s): R07.89 - OTHER CHEST PAIN (4) HTN (hypertension) Current Visit: Yes Status: Acute Code(s): I10 - ESSENTIAL (PRIMARY) HYPERTENSION (5) Hyperlipidemia Current Visit: Yes Status: Acute Code(s): E78.5 - HYPERLIPIDEMIA, UNSPECIFIED (6) Hyponatremia Current Visit: Yes Status: Acute Code(s): E87.1 - HYPO-OSMOLALITY AND HYPONATREMIA (7) Hypothyroidism Current Visit: Yes Status: Acute Code(s): E03.9 - HYPOTHYROIDISM, UNSPECIFIED (8) Pneumonia Current Visit: Yes Status: Acute Code(s): J18.9 - PNEUMONIA, UNSPECIFIED ORGANISM (9) Type II diabetes mellitus, well controlled Current Visit: Yes Status: Acute Code(s): E11.9 - TYPE 2 DIABETES MELLITUS WITHOUT COMPLICATIONS (10) Diarrhea Current Visit: Yes Status: Acute Code(s): R19.7 - DIARRHEA, UNSPECIFIED
[2023-05-05 20:07] LABS: 027 TOX PROD PRESUMPTIVE NEGATIVE (NEGATIVE); TOXIGENIC C. DIFF ORG NEGATIVE (NEGATIVE)
[2023-05-05] MEDS: Glucophage 500 MG PO SCH (22:05)
[2023-05-05] MEDS: Januvia 50 MG PO SCH (22:05)
[2023-05-05] MEDS: Neurontin PO SCH (22:05)
[2023-05-05] MEDS: ZOCOR 20MG PO SCH (22:05)
[2023-05-06 05:01] LABS: Absolute Neutrophil Ct (ANC) 9.71 x10^3/uL (1.4-6.9); BASOPHIL % 0.2 % (0.0-0.4); Basophil (Absolute #) 0.02 x10^3/uL (0-0.4); Eosinophil (Absolute #) 0 x10^3/uL (0-0.5); Hematocrit 33.6 % (35-47); Hemoglobin 10.6 g/dL (12.0-16.0); IMMATURE GRAN # 0.26 x10^3u/L (0.00-0.03); IMMATURE GRAN % 2.3 % (0.00-0.4); Lymphocyte (Absolute #) 0.81 x10^3/uL (1.0-4.6); Lymphocytes % 7.2 % (24.0-44.0); Mean Cell Volume 94.6 fL (78-100); Mean Corpuscular Hemoglobin 29.9 pg (26-32); Mean Corpuscular Hgb Concent. 31.5 g/dL (32-36); Mean Platelet Volume 8.5 fL (7.5-11.0); Monocyte (Absolute #) 0.47 x10^3/uL (0.0-1.3); Monocytes % 4.2 % (0.0-12.0); Neutrophil % 86.1 % (36.0-66.0); Platelet Count 262 x10^3/uL (150-450); Red Blood Count 3.55 x10^6/uL (4.1-5.4); Red Cell Distribution Width 12.7 % (11.5-14.0); White Blood Count 11.3 x10^3/uL (4.0-10.5)
[2023-05-06 05:28] LABS: ALBUMIN 3.2 g/dL (3.5-5.0); ANION GAP 9.2 MEQ/L (5-15); BILIRUBIN,TOTAL 0.3 mg/dL (0.2-1.3); Calcium 8.3 mg/dL (8.4-10.2); Creatinine 1 0.71 mg/dL (0.52-1.04); EST GLOMERULAR FILTRATION RATE 91.4 ML/MIN; Potassium 4.4 mmol/L (3.5-5.1); Total Protein 5.6 g/dL (6.3-8.2)
[2023-05-06] MEDS: solu-MEDROL 40 MG, Sterile H2O 10 ml 1 ML IV SCH ×2 (05:37)
[2023-05-06] MEDS: PROVENTIL 2.5 MG/3 ML NEB IH SCH ×2 (06:41→11:05)
[2023-05-06] MEDS: Advair Hfa 115/21 Common canister IH SCH (06:44)
[2023-05-06] MEDS ORDERED: IMODIUM 2 MG PO PRN (08:00)
[2023-05-06] MEDS ORDERED: Sodium Chloride 0.9% 1000 ML 1,000 ML IV SCH (08:15)
[2023-05-06] MEDS: Zestril 10 MG PO SCH (09:57)
[2023-05-06] MEDS: ELIQUIS 2.5 MG TABLET PO SCH (09:57)
[2023-05-06] MEDS: Levofloxacin 250MG Tablet PO SCH (09:58)
[2023-05-06] MEDS: Levofloxacin 500 MG Tablet PO SCH (09:58)
[2023-05-06] MEDS: Mucinex 600MG ER Tabs PO SCH (09:58)
[2023-05-06] MEDS: Protonix 40MG Tablet PO SCH (09:58)
[2023-05-06] MEDS: SYNTHROID 88 MCG PO SCH (10:07)
[2023-05-06 11:09] VITALS: O2SAT 96
[2023-05-06 12:28] VITALS: BP 131/59; PULSE 81; RESP 16; TEMP 97.1
--- NOTE | 2023-05-06 12:28 | PCM.DS ---
Discharge Summary Date of Admission: 05/02/23 08:58 Date of Discharge: 05/06/23 Admitting Physician: NADINE GONSALEZ MD Primary Care Provider: ARTUR MOELLER Allergies Allergies No Known Drug Allergies Allergy (Verified 05/02/23 03:16) Hospital Summary - Hospital Course Hospital Course: Ms. 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 CTA is positive for left- sided pulmonary embolism with interstitial findings suggestive of infectious process. Patient started on Rocephin/zosyn as well as lovenox. Converted to eliquis. Symptoms are improved but still coughing up yellow sputum. At baseline oxygen of 3L. Sputum culture growing pseudomonas putida and klebsilla pneumonia. Patient states she is at her baseline and ready for discharge. Will dismiss her home on levaquin for 5 days. Discussed Eliquis dosing with patient. She is on day 3/ of her 10mg dose. She will take 10mg this evening and then for 4 more days. There after she will take 5mg po bid. Advised patient close follow up with pcp, pulm, and cardiology. Patients thyroid level is low, dose changed to 88mcg, advised follow up with her pcp for recheck. Discharge Note New Diagnosis: PE/Pneumonia New Medications: Eliquis/ Levaquin Follow Up: pcp/pulm Latest Assessment & Plan (1) Pulmonary embolism Current Visit: Yes Status: Acute Assessment & Plan: -D-Dimer 0.59 - CT chest with contrast 05/02/23 IMPRESSION: Non-opacification of subsegmental branches of the lower lobe of the left pulmonary artery is suggestive of left distal PE. Interstitial lung markings. Parenchymal lung processes such as infection or chronic lung disease may be present. Suggest follow-up chest CT in 3 months. - trop X3 negative - started therapeutic Lovenox - Echo, venous duplex- tomorrow - Consider cards consult - Tele - O2 95% on 4LNC 05/03: -Start eliquis, 10mg bid dosing x 7 days 5mg bid dosing thereafter, rx sent to pharm to check pricing Code(s): I26.99 - OTHER PULMONARY EMBOLISM WITHOUT ACUTE COR PULMONALE (2) Pneumonia Current Visit: Yes Status: Acute Assessment & Plan: - Zosyn, advair, proventil, solumedrol - On 4LNC- 95% - BL 2lNC - Sputum culture pending - Mucinex BID 05/03: -Add solumedrol -Continue zosyn 05/04: -improving, now at baseline oxygen, most likely will discharge in the morning 04/25: -sputum culture showing klebsiella and pseudomonas putida will add levaquin to zosyn Code(s): J18.9 - PNEUMONIA, UNSPECIFIED ORGANISM (3) Chest tightness Current Visit: Yes Status: Acute Assessment & Plan: - Most likely r/t PE and pneumonia - Trop x3 negative - Echo in AM - Consider cardiology consult 05/03: -Echo pending -Denies CP today Code(s): R07.89 - OTHER CHEST PAIN (4) COPD with acute exacerbation Current Visit: Yes Status: Acute Assessment & Plan: - Zosyn, advair, proventil, solumedrol - On 4LNC- 95% - BL 2lNC 05/05: -On baseline 3L Code(s): J44.1 - CHRONIC OBSTRUCTIVE PULMONARY DISEASE W (ACUTE) EXACERBATION (5) HTN (hypertension) Current Visit: Yes Status: Acute Assessment & Plan: - Continue Lisinopril - BP stable Code(s): I10 - ESSENTIAL (PRIMARY) HYPERTENSION (6) Type II diabetes mellitus, well controlled Current Visit: Yes Status: Acute Assessment & Plan: - A1C 4.88 - Continue Metformin and Januvia - accuchecks AC/HS - low dose s/s added as pt is getting steriods and may increase glucose - ADA diet Code(s): E11.9 - TYPE 2 DIABETES MELLITUS WITHOUT COMPLICATIONS (7) Hypothyroidism Current Visit: Yes Status: Acute Assessment & Plan: - Continue synthroid - TSH in AM 05/03: -TSH low, will decrease dose to 88mcg Code(s): E03.9 - HYPOTHYROIDISM, UNSPECIFIED (8) Hyponatremia Current Visit: Yes Status: Acute Assessment & Plan: - Na+ 133 -IV fluids gave in ER - trend 05/03: -improving 05/04: -will continue to monitor Code(s): E87.1 - HYPO-OSMOLALITY AND HYPONATREMIA (9) Hyperlipidemia Current Visit: Yes Status: Acute Assessment & Plan: - Continue statin #Diarrhea -will collect stool studies I spent 35 minutes [id number] with the patient on the day of discharge performing discharge exam, discussing hospital stay and discharge instructions with patient and caregivers, preparation of discharge records, prescriptions & referral forms and addressing any questions/concerns the patient had as documented above. - Vitals & Intake/Output Vital Signs: Vital Signs Temperature 97.3 F 05/06/23 07:31 Pulse Rate 72 05/06/23 11:07 Respiratory Rate 18 05/06/23 11:07 Blood Pressure 132/62 05/06/23 07:31 O2 Sat by Pulse Oximetry 96 05/06/23 11:07 Intake & Output: Intake & Output 05/04/23 05/05/23 05/06/23 05/07/23 11:59 11:59 11:59 11:59 Intake Total 720 1500 2061 Balance 720 1500 2061 Weight 68.5 kg - Lab Result Diagrams: 05/06/23 04:20 05/06/23 04:20 Lab Results-Last 24 Hrs: Lab Results-Last 24 Hours 05/05/23 05/05/23 05/05/23 Range/Units 15:51 19:30 20:56 WBC (4.0-10.5) x10^3/uL RBC (4.1-5.4) x10^6/uL Hgb (12.0-16.0) g/dL Hct (35-47) % MCV (78-100) fL MCH (26-32) pg MCHC (32-36) g/dL RDW (11.5-14.0) % Plt Count (150-450) x10^3/uL MPV (7.5-11.0) fL Gran % (36.0-66.0) % Immature Gran % (Auto) (0.00-0.4) % Nucleat RBC Rel Count (0.00-0.1) % Eos # (Auto) (0-0.5) x10^3/uL Immature Gran # (Auto) (0.00-0.03) x10^3u/L Absolute Lymphs (auto) (1.0-4.6) x10^3/uL Absolute Monos (auto) (0.0-1.3) x10^3/uL Absolute Nucleated RBC (0.00-0.01) x10^3u/L Lymphocytes % (24.0-44.0) % Monocytes % (0.0-12.0) % Eosinophils % (0.00-5.0) % Basophils % (0.0-0.4) % Absolute Granulocytes (1.4-6.9) x10^3/uL Basophils # (0-0.4) x10^3/uL Sodium (137-145) mmol/L Potassium (3.5-5.1) mmol/L Chloride (98-107) mmol/L Carbon Dioxide (22-30) mmol/L Anion Gap (5-15) MEQ/L BUN (7-17) mg/dL Creatinine (0.52-1.04) mg/dL Estimated GFR ML/MIN Glucose (74-106) mg/dL POC Glucometer 111 H 87 (74 to 106) mg/dL Calcium (8.4-10.2) mg/dL Total Bilirubin (0.2-1.3) mg/dL AST (14-36) U/L ALT (0-35) U/L Alkaline Phosphatase (38-126) U/L Serum Total Protein (6.3-8.2) g/dL Albumin (3.5-5.0) g/dL C. difficile Screen NEGATIVE (NEGATIVE) C.difficile 027-NAP1-B1 PRESUMPTIVE NEGATIVE (NEGATIVE) 05/06/23 05/06/23 05/06/23 Range/Units 04:20 04:20 06:54 WBC 11.3 H (4.0-10.5) x10^3/uL RBC 3.55 L (4.1-5.4) x10^6/uL Hgb 10.6 L (12.0-16.0) g/dL Hct 33.6 L (35-47) % MCV 94.6 (78-100) fL MCH 29.9 (26-32) pg MCHC 31.5 L (32-36) g/dL RDW 12.7 (11.5-14.0) % Plt Count 262 (150-450) x10^3/uL MPV 8.5 (7.5-11.0) fL Gran % 86.1 H (36.0-66.0) % Immature Gran % (Auto) 2.3 H (0.00-0.4) % Nucleat RBC Rel Count 0.0 (0.00-0.1) % Eos # (Auto) 0 (0-0.5) x10^3/uL Immature Gran # (Auto) 0.26 H (0.00-0.03) x10^3u/L Absolute Lymphs (auto) 0.81 L (1.0-4.6) x10^3/uL Absolute Monos (auto) 0.47 (0.0-1.3) x10^3/uL Absolute Nucleated RBC 0.00 (0.00-0.01) x10^3u/L Lymphocytes % 7.2 L (24.0-44.0) % Monocytes % 4.2 (0.0-12.0) % Eosinophils % 0.0 (0.00-5.0) % Basophils % 0.2 (0.0-0.4) % Absolute Granulocytes 9.71 H (1.4-6.9) x10^3/uL Basophils # 0.02 (0-0.4) x10^3/uL Sodium 130 L (137-145) mmol/L Potassium 4.4 (3.5-5.1) mmol/L Chloride 99 (98-107) mmol/L Carbon Dioxide 27 (22-30) mmol/L Anion Gap 9.2 (5-15) MEQ/L BUN 21 H (7-17) mg/dL Creatinine 0.71 (0.52-1.04) mg/dL Estimated GFR 91.4 ML/MIN Glucose 95 (74-106) mg/dL POC Glucometer 91 (74 to 106) mg/dL Calcium 8.3 L (8.4-10.2) mg/dL Total Bilirubin 0.30 (0.2-1.3) mg/dL AST 24 (14-36) U/L ALT 14 (0-35) U/L Alkaline Phosphatase 53 (38-126) U/L Serum Total Protein 5.6 L (6.3-8.2) g/dL Albumin 3.2 L (3.5-5.0) g/dL C. difficile Screen (NEGATIVE) C.difficile 027-NAP1-B1 (NEGATIVE) 05/06/23 Range/Units 11:51 WBC (4.0-10.5) x10^3/uL RBC (4.1-5.4) x10^6/uL Hgb (12.0-16.0) g/dL Hct (35-47) % MCV (78-100) fL MCH (26-32) pg MCHC (32-36) g/dL RDW (11.5-14.0) % Plt Count (150-450) x10^3/uL MPV (7.5-11.0) fL Gran % (36.0-66.0) % Immature Gran % (Auto) (0.00-0.4) % Nucleat RBC Rel Count (0.00-0.1) % Eos # (Auto) (0-0.5) x10^3/uL Immature Gran # (Auto) (0.00-0.03) x10^3u/L Absolute Lymphs (auto) (1.0-4.6) x10^3/uL Absolute Monos (auto) (0.0-1.3) x10^3/uL Absolute Nucleated RBC (0.00-0.01) x10^3u/L Lymphocytes % (24.0-44.0) % Monocytes % (0.0-12.0) % Eosinophils % (0.00-5.0) % Basophils % (0.0-0.4) % Absolute Granulocytes (1.4-6.9) x10^3/uL Basophils # (0-0.4) x10^3/uL Sodium (137-145) mmol/L Potassium (3.5-5.1) mmol/L Chloride (98-107) mmol/L Carbon Dioxide (22-30) mmol/L Anion Gap (5-15) MEQ/L BUN (7-17) mg/dL Creatinine (0.52-1.04) mg/dL Estimated GFR ML/MIN Glucose (74-106) mg/dL POC Glucometer 94 (74 to 106) mg/dL Calcium (8.4-10.2) mg/dL Total Bilirubin (0.2-1.3) mg/dL AST (14-36) U/L ALT (0-35) U/L Alkaline Phosphatase (38-126) U/L Serum Total Protein (6.3-8.2) g/dL Albumin (3.5-5.0) g/dL C. difficile Screen (NEGATIVE) C.difficile 027-NAP1-B1 (NEGATIVE) Micro Results-Entire Visit: Microbiology 05/05/23 Unknown Stool Culture Result 1 - Final Stool Not Reportable Stool Culture Result 2 - Final Not Reportable Stool Culture Result 3 - Final Not Reportable Stool Culture Result 4 - Final Not Reportable Stool Culture Organism Suscept - Final Not Reportable Campylobacter Result 1 - Final Not Reportable Campylobacter Result 2 - Final Not Reportable Campylobactor Result 3 - Final Not Reportable Campylobacter Result 4 - Final Not Reportable Campylobactor Susceptibility - Final Not Reportable 05/02/23 10:19 Gram Stain - Final Sputum - Expectorant Sputum Culture - Final Pseudomonas Putida Klebsiella Pneumoniae Accuchecks Date 05/06/23 Date 05/05/23 Date 05/05/23 Time 21:00 - Procedures and Test Procedures and Tests throughout Hospitalization: Therapy Orders & Screens 05/02/23 09:02 Oxygen Nasal Cannula 4 lpm Comment: Respiratory Therapy Consult ONCE Comment: Reason For Exam: 05/03/23 07:00 Respiratory Therapy Assessment DAILY Comment: Discharge Exam General Appearance: no apparent distress Neurologic Exam: alert, oriented x 3, cooperative Eye Exam: PERRL Ears, Nose, Throat Exam: normal ENT inspection Neck Exam: normal inspection Respiratory Exam: diminished breath sounds Cardiovascular Exam: regular rate/rhythm, normal heart sounds Gastrointestinal/Abdomen Exam: soft, normal bowel sounds Pelvic Exam: deferred Rectal Exam: deferred Back Exam: normal inspection Extremity Exam: normal inspection Skin Exam: normal color Final Diagnosis/Problem List - Final Discharge Diagnosis/Problem (1) Pulmonary embolism Current Visit: Yes Status: Acute Code(s): I26.99 - OTHER PULMONARY EMBOLISM WITHOUT ACUTE COR PULMONALE (2) COPD with acute exacerbation Current Visit: Yes Status: Acute Code(s): J44.1 - CHRONIC OBSTRUCTIVE PULMONARY DISEASE W (ACUTE) EXACERBATION (3) Chest tightness Current Visit: Yes Status: Acute Code(s): R07.89 - OTHER CHEST PAIN (4) HTN (hypertension) Current Visit: Yes Status: Acute Code(s): I10 - ESSENTIAL (PRIMARY) HYPERTENSION (5) Hyperlipidemia Current Visit: Yes Status: Acute Code(s): E78.5 - HYPERLIPIDEMIA, UNSPECIFIED (6) Hyponatremia Current Visit: Yes Status: Acute Code(s): E87.1 - HYPO-OSMOLALITY AND HYPONATREMIA (7) Hypothyroidism Current Visit: Yes Status: Acute Code(s): E03.9 - HYPOTHYROIDISM, UNSPECIFIED (8) Pneumonia Current Visit: Yes Status: Acute Code(s): J18.9 - PNEUMONIA, UNSPECIFIED ORGANISM (9) Type II diabetes mellitus, well controlled Current Visit: Yes Status: Acute Code(s): E11.9 - TYPE 2 DIABETES MELLITUS WITHOUT COMPLICATIONS (10) Diarrhea Current Visit: Yes Status: Acute Code(s): R19.7 - DIARRHEA, UNSPECIFIED - Discharge Disposition: Home, Self-Care Condition: Good Prescriptions: New Apixaban [Eliquis] 5 mg PO UD 30 Days #1 packet levoFLOXacin [Levofloxacin] 750 mg PO DAILY #5 tablet Methylprednisolone Packet [Medrol Dosepack] 4 mg PO UD #30 packet Levothyroxine Sodium 88 Mcg [Synthroid 88 Mcg] 88 mcg PO DAILY 30 Days #30 tablet Continue Lisinopril 10 mg [Zestril 10 MG] 10 mg PO DAILY PANTOPRAZOLE 40 mg Tablet [Protonix 40MG Tablet] 40 mg PO QAM Simvastatin 80 mg PO HS Sitagliptin Phos/Metformin HCl [Janumet 50-1,000 mg Tablet] 1,000 mg PO HS Gabapentin 100 mg PO HS Fluticasone/Umeclidin/Vilanter [Trelegy Ellipta 100-62.5-25] 1 each IH DAILY Albuterol 2.5 mg/3 ml Neb [Proventil 2.5 mg/3 ml Neb] 2.5 mg IH QID Discontinued Levothyroxine Sodium 100 Mcg [Synthroid 100 Mcg] 100 mcg PO DAILY Instructions: Pneumonia, Adult (DC), Pulmonary Embolism (Blood Clot in the Lungs) (DC), Apixaban Additional Instructions: Eliquis - Patient to take 10mg this evening 05/06/23, then 10mg twice a day for four more days. Then take 5mg twice a day there after. Follow up with: ARTUR MOELLER MD [Primary Care Provider] - 05/12/23 1:30 pm Forms: Discharge Instructions
[2023-05-10] MEDS ORDERED: ELIQUIS 2.5 MG TABLET PO SCH (22:00)
== END 2023-05-06 14:06 | disposition home or self-care (01) | DRG 175 ==
LOC: ED 03:15 → MED SURG 08:58
PROVIDERS: ADMIT Internal Medicine; ATTEND Internal Medicine
DX: I26.99 Other pulmonary embolism without acute cor pulmonale (principal); J18.9 Pneumonia, unspecified organism; J44.1 Chronic obstructive pulmonary disease with (acute) exacerbation; G70.80 Lambert-Eaton syndrome, unspecified; E87.1 Hypo-osmolality and hyponatremia; E11.9 Type 2 diabetes mellitus without complications; I10 Essential (primary) hypertension; E78.5 Hyperlipidemia, unspecified; R07.89 Other chest pain; E03.9 Hypothyroidism, unspecified; R19.7 Diarrhea, unspecified; Z79.899 Other long term (current) drug therapy
CPT/HCPCS: 0241U; 36415; 71045; 71260; 80048; 80053; 82947; 83036; 83880; 84439; 84443; 84484; 85025; 85027; 85379; 85610; 85730; 87070; 87077; 87186; 87493; 93005; 93041; 93306; 93970; 94640; 94760; 94762; 96365; 96367; 96372; 99285; J0696; J1650; J2405; J2543; J2920; J7609; Q3014; A9270-GY